=== PATIENT | male | born 1985 | race Two or more races ===

== ENCOUNTER → 2024-09-13 15:46 | Outpatient (BNVA) | payer OTHER, SELFPAY | PROVIDERS: Visit Provider Physician Assistant Surgical ==

== ENCOUNTER 2024-09-19 08:25 | Outpatient (AMB) | payer OTHER, SELFPAY ==
--- OUTSIDE RECORDS SUMMARY | 2024-09-19 08:30 | XMS_ITS | Clinical Summary ---
Author Organization [address] Address [address] [place] [address] Phone Care Team Providers Care Sander Machine Name Role Phone Julissa Hi MD Primary Care Prov ider Allergies No known active allergies Active Problems Problem Noted Date Diagnosed Date Unilateral undescended testicle 06/25/2023 Encounters Date Type Department Care Team Description 08/22/2024 Telephone Adult Medicine [address] [phone] Julissa Hi MD Referral (Dr Haile [facility] Weight Management ) 08/17/2024 Telephone Adult Medicine [address] [phone] Julissa Hi MD Referral 07/21/2024 8:00 AM EDT Office Visit Adult Medicine [address] [phone] Julissa Hi MD Adult general medical examination (Primary Dx); Snoring from Last 3 Months Immunizations Name Administration Dates Next Due Influenza Quadravalent, MDCK , 0.5ml, preservative free (Flucelvax) 6mo and older 06/25/2023 Moderna SARS-CoV-2 COVID-19, mRNA, LNP-S, preservative free 01/16/2021,12/18/2020 Tdap Tetanus diptheria acell ular pertussis (Boostrix; Adacel) 7yo and older 06/25/2020 Medical History Medical History Date Comments Vitiligo DX:Vitiligo Family History Medical History Relation Name Comments No Known Problems Brother No Known Problems Father No Known Problems Mother No Known Problems Sister Diabetes Neg Hx Other cancer Neg Hx Relation Name Status Comments Brother Father Mother Sister Social History Tobacco Use Types Packs/Day Years Used Date Smoking Tobacco: Never Smokeless Tobacco: Never Tobacco Cessation:Counseling Given: Not Answered Alcohol Use Standard Drinks/Week Comments Not Currently 0 (1 standard drink = 0.6 oz pur e alcohol) Housing Instability Answer Date Recorde d Are you worried that in the next 2 months you may not have stable housing? No 07/20/2024 Food Access & Nutrition Answer Date Rec orded Do you have access to a vari ety of food including fruits and vegetables? Yes 07/20/2024 Access to Healthcare Answer Date Record ed Within the last 3 months, ho w many times did you visit the emergency department for your medical care? 0 07/20/2024 Health Literacy Answer Date Recorded How often do you need to hav e someone help you when you read instructions, pamphlets, or other written material from your doctor or pharmacy? Sometimes 07/20/2024 Caregiver: How often do you need to have someone help you when you read instructions, pamphlets, or other written material from your doctor or pharmacy? Not on file 07/20/2024 Financial Risk Answer Date Recorded How hard is it for you to pa y for the very basics like food, housing, medical care, and air conditioning / heating? Not very hard 07/20/2024 Transportation Answer Date Recorded Has the lack of transportati on kept you from meetings, work, or from getting things needed for daily living? No Has the lack of transportati on kept you from medical appointments or from getting medications? No 07/20/2024 Social Isolation Answer Date Recorded How often do you feel lonely or isolated from th ose around you? Never 07/20/2024 Food Risk Answer Date Recorded Within the past 12 months we worried whether our food would run out before we got money to buy more. Never true 07/20/2024 Within the past 12 months th e food we bought just didn't last and we didn't have money to get more. Never true 07/20/2024 Dependent Care Answer Date Recorded Do you need help finding or paying for care for your loved ones. For example, early childhood assistant or elderly care for an older adult? No 07/20/2024 Education Answer Date Recorded Do you think completing more education or training, like finishing a GED, going to college, or learning a trade, would be helpful for you? Yes 07/20/2024 Employment and Income Answer Date Recor ded During the last four weeks, have you been actively looking for work? No 07/20/2024 Living Situation Answer Date Recorded What is your living situation? 0 07/20/2024 Sex and Gender Information Value Date Recorded Sex Assigned at Male 06/17/2024 3:56 PM EST Legal Sex Male 6:17 PM EST Gender Identity Male 06/17/2024 3:56 PM EST Sexual Orientation Not on file Obstetrics History Last Filed Vital Signs Vital Sign Reading Time Taken Comments Blood Pressure 127/78 07/21/2024 8:01 AM EDT Pulse 77 07/21/2024 8:01 AM EDT Temperature 36.4 ??C (97.6 ??F) 07/21/2024 8:01 AM ED T Respiratory Rate 18 07/21/2024 8:01 AM EDT Oxygen Saturation - - Inhaled Oxygen Concentration - - Weight 124 kg (273 lb 9.6 oz) 07/21/2024 8:01 AM EDT Height 188 cm (6' 2 ) 07/21/2024 8:01 AM EDT Body Mass Index 35.13 07/21/2024 8:01 AM EDT Plan of Treatment Upcoming Encounters Date Type Department Care Team (Late st Contact Info) Description 07/24/2025 7:30 AM EDT Office Visit Adult Medicine [address] [phone] Julissa Hi MD [address] [place] [id number] Health Maintenance Due Date Last Done Comments Hepatitis B Vaccines (1 of 3 - 19+ 3-dose series) 2005 HIV Screening 06/12/2023 Hepatitis C Screening 06/12/2023 Influenza Vaccine (Season Ended) 2025 06/25/2023 Depression Screening 07/20/2025 07/20/2024 Social Influencers of Health Screening 07/20/2025 07/20/2024 Cholesterol Screening (Lipid Panel) 07/26/2029 07/26/2024, 07/01/2023 DTaP,Tdap,and Td Vaccines (2 - Td or Tdap) 06/25/2030 06/25/2020 COVID-19 Vaccine Discontinued 01/16/2021, 12/18/2020 HIB Vaccines Aged Out No longer eligi ble based on patient's age to complete this topic HPV Vaccines Aged Out No longer eligi ble based on patient's age to complete this topic Hepatitis A Vaccines Aged Out No long er eligible based on patient's age to complete this topic IPV Vaccines Aged Out No longer eligi ble based on patient's age to complete this topic MMR Vaccines Aged Out No longer eligi ble based on patient's age to complete this topic Meningococcal ACWY Vaccine Aged Out N o longer eligible based on patient's age to complete this topic Meningococcal B Vaccine Aged Out No l onger eligible based on patient's age to complete this topic Pneumococcal Vaccine: Pediatrics (0 to 5 Years) and At-Risk Patients (6 to 64 Years) Aged Out No longer eligible based on patient's age to complete this topic RSV Immunization Patients Under 20 months Aged Out No longer eligible based on patient's age to complete this topic Varicella Vaccines Aged Out No longer eligible based on patient's age to complete this topic Procedures Procedure Name Priority Date/Time Associated Diagnosis Comments COMPREHENSIVE METABOLIC PANEL Routine 07/26/2024 8:22 AM EDT Adult general medical examination LIPID PANEL WITH REFLEX TO DIRECT LDL Routine 07/26/2024 8:22 AM EDT Adult general medical examination from Last 3 Months Results * (ABNORMAL) Lipid panel with reflex to direct LDL (07/26/2024 8:22 AM EDT) Cholesterol 164 0 - 200 mg/dL LAB CHEMISTRY METHOD 07/26/2024 11:13 AM EDT [facility] Triglycerides 130 0 - 150 mg/dL LAB CHEMISTRY METHOD 07/26/2024 11:13 AM EDT [facility] HDL 35(L) >=40 mg/dL LAB CHEMISTRY METHOD 07/26/2024 11:13 AM EDT [facility] LDL Calculated 103(H) 0 - 100 mg/dL LAB CHEMISTRY METHOD 07/26/2024 11:13 AM EDT [facility] VLDL Cholesterol Goran 26 mg/dL LAB CHEMISTRY METHOD 07/26/2024 11:13 AM T [facility] Non HDL Chol. (LDL+VLDL) 129 <145 mg/dL LAB CHEMISTRY METHOD 07/26/2024 11:13 AM T [facility] Chol/HDL Ratio 4.7(H) 0.0 - 4.4 LAB CHEMISTRY METHOD 07/26/2024 11:13 AM [facility] Blood Venous blood specimen / Unknown Venipuncture / Unknown 07/26/2024 8:22 AM EDT 07/26/2024 8:22 AM EDT us Julissa Hi MD LAB BLOOD ORDERABL ES Final Result [facility] [address] [place] [address], * Comprehensive metabolic panel (07/26/2024 8:22 AM EDT) Sodium 138 133 - 145 mmol/L LAB CHEMISTRY METHOD 07/26/2024 11:13 AM T [facility] Potassium 4.2 3.5 - 5.5 mmol/L LAB CHEMISTRY METHOD 07/26/2024 11:13 AM [facility] Chloride 106 96 - 110 mmol/L LAB CHEMISTRY METHOD 07/26/2024 11:13 AM [facility] CO2 29 21 - 32 mmol/L LAB CHEMISTRY METHOD 07/26/2024 11:13 AM T [facility] Anion Gap 3 3 - 11 LAB CHEMISTRY METHOD 07/26/2024 11:13 AM [facility] Glucose 96 70 - 100 mg/dL LAB CHEMISTRY METHOD 07/26/2024 11:13 AM [facility] BUN 14 5 - 25 mg/dL LAB CHEMISTRY METHOD 07/26/2024 11:13 AM [facility] Creatinine 1.22 0.70 - 1.30 mg/dL LAB CHEMISTRY METHOD 07/26/2024 11:13 AM [facility] eGFR 78 >=60 mL/min/1. 73m2 LAB CHEMISTRY METHOD 07/26/2024 11:13 AM [facility] Comment:Calculation based on the??Chronic Kidney Disease Epidemiology Collaboration (CKD-EPI) equation refit??without adjustment for race. BUN/Creatinine Ratio 11.5 LAB CHEMISTRY METHOD 07/26/2024 11:13 AM [facility] Calcium 9.4 8.5 - 10.5 mg/dL LAB CHEMISTRY METHOD 07/26/2024 11:13 AM [facility] AST (SGOT) 25 10 - 42 unit/L LAB CHEMISTRY METHOD 07/26/2024 11:13 AM [facility] ALT (SGPT) 47 10 - 60 unit/L LAB CHEMISTRY METHOD 07/26/2024 11:13 AM [facility] Alkaline Phosphatase 108 42 - 121 unit/L LAB CHEMISTRY METHOD 07/26/2024 11:13 AM [facility] Total Protein 7.3 6.0 - 8.0 g/dL LAB CHEMISTRY METHOD 07/26/2024 11:13 AM [facility] Albumin 3.9 3.2 - 5.0 g/dL LAB CHEMISTRY METHOD 07/26/2024 11:13 AM [facility] Total Bilirubin 0.8 0.0 - 1.4 mg/dL LAB CHEMISTRY METHOD 07/26/2024 11:13 AM EDT [facility] Blood Venous blood specimen / Unknown Venipuncture / Unknown 07/26/2024 8:22 AM EDT 07/26/2024 8:22 AM EDT us Julissa Hi MD LAB BLOOD ORDERABL ES Final Result [facility] [address] [place] [address], from Last 3 Months Insurance [facility] [employer] Care Teams Sander Machine Relationship Specialty Start Date End Date Julissa Hi MD [address] [place] [id number] PCP - General 02/10/23
--- NOTE | 2024-09-19 13:40 | MHC.OFFVISWM ---
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* Sharepoint Application Developer Required: Yes Sharepoint Application Developer Services: Sharepoint Application Developer Present Information Interpreted: clinical only Allergies No Known Allergies Allergy (Verified 09/19/24 13:42) Medication List - Last Reconciled 09/19/24 by Reed Méndez MD No Known Home Meds HPI HPI 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*: Details: Start time: 1.22pm, End time: 2.22pm ?I spent 55 minutes speaking with the patient on the phone plus an additional 5 minutes reviewing and updating records for a total of 60 minutes HPI Comments Details: Previous weight loss efforts: self diet and exercise Wakes up: 5.40am, Sleeps: 10pm Breakfast: occasionally Lunch: 1pm (salad, meat) Dinner: 7pm (fruits and juice) Snacks: snacking in between Exercise: has home Elliptical and treadmill Beverages: Coffee (1 cup/day with sugar), tea: none, soda: none, juice: 1 cup/day, ETOH: none PFSH Medical History (Updated 09/19/24 @ 14:06 by Reed Méndez MD) Anxiety Hyperlipidemia GERD (gastroesophageal reflux disease) BMI 36.0-36.9,adult Obesity Surgical History (Updated 09/13/24 @ 15:55 by Anabel Rivers CMA) No history of previous surgery Family History (Updated 09/14/24 @ 08:25 by Anabel Rivers CMA) Mother No problems noted. Father No problems noted. Social History (Updated 09/13/24 @ 15:55 by Anabel Rivers CMA) Alcohol intake: never Patient Tobacco Use Status: Never used Tobacco Telehealth Telehealth Telehealth Platform: Telephone Location of provider rendering services: practice address Location of patient: address on file Patient Identification confirmed using: Name, : Yes Telehealth method: voice only Patient verbally consented to treatment: Yes Patient verbally consented to billing insurance company: Yes Patient informed of any privacy concerns related to visit: Yes Minutes spent on Phone/Video with Pt.: 60 Assessment & Plan Assessment & Plan (1) Obesity: Code(s): E66.9 - Obesity, unspecified Category: Medical Qualifiers: Obesity type: due to excess calories Obesity classification: adult class 2 (BMI 35 - 39.9) Serious obesity comorbidity presence: without serious comorbidity Body mass index: BMI 36.0-36.9 Qualified Code(s): E66.812 - Obesity, class 2; E66.09 - Other obesity due to excess calories; Z68.36 - Body mass index [BMI] 36.0-36.9, adult Plan: 1.? Plan for lap sleeve gastrectomy. If diaphragmatic or ventral hernias are present at time of surgery, these will be repaired laparoscopically as well. I emphasized the importance of close follow-up, adherence to instructions and good communication. The surgery does not replace the need to change your lifestlyle which is the cause of the obesity problem. The surgery provides the motivation to try again to change your lifestyle, it reduces the appetite and make the transition to a better lifestyle easier and doubles the amount of weight you would lose compared to doing the lifestyle change without the surgery. You will need to be on a liquid diet with protein shakes for 2 weeks before surgery to maximize weight loss and boost your nutritional status to recover better from surgery and also for the first two weeks after surgery to let the stomach heal before we introduce other foods. After the first 2 weeks we will introduce protein bars and soft foods like scrambled eggs, cottage cheese and yogurt and after the 6th week will introduce meat, fish and cooked vegetables in small amounts. Over time you should be able to eat everything in small amounts. Side effects like nausea, vomiting, heartburn or abdominal pain are not common in the practice unless you are not following in the practice. This operation requires lifetime commitment to following in our practice and communication with me. You will much less weight and experience side effects if you don?t communicate or not following in the practice. Complications are rare and in our practice is about 1/10 of the national average. However, you can develop bleeding that may require transfusion (hasn?t happened for year in the practice), you may from complications (we did not have any deaths in the practice) and infections. Infections are usually a result of breakdown in communication or not understanding or following directions correctly. They are difficult to treat, they can happen during the first 6 weeks, they may require to be in the hospital for weeks or even months, not being able to eat by mouth and you may have drains and surgeries to try and correct the issue. Other risks and complications include possible conversion to an open procedure, leaks, small bowel obstruction, blood clots, cardiac, or pulmonary complications, as oil heaterman complications such as ulcers, insufficient weight loss and vitamin deficiencies. 2.? Nutritional counseling. Start with one premade Premier protein (buy at [employer]) shake (mix 4oz of Premier mixed with 4oz low fat unsweetened almond milk each) at 7am-9am, 1 protein bar (Fit Crunch protein bars, buy at [employer]) at 10am-12pm, another premade Premier protein shake (mix 4oz of Premier mixed with 4oz low fat unsweetened almond milk each) at 1pm-3pm, another [employer] Crunch protein bar at 4pm-6pm and dinner at 7pm (10 forks of protein and 10 forks of salad/vegetables). If hungry, you can have another HALF protein bar at 9pm-10pm. So you do 2 protein shakes, 2 to 2.5 protein bars and one meal per day. Meal to include lean meat (beef, fish, pork, turkey, chicken), or uruguayan yogurt, or egg whites, or beans with a salad with olive oil and fruits (berries, pears, apples, kiwi). Avoid salt, breads, potatoes, rice, pasta, desserts. 3. Each shake would be drunk slowly, like coffee in a period of 2 hours. 4. Cut each bar in 4 pieces and eat each piece in 30min ?to make each bar last 2 hours. 5. I emphasized the importance of measuring accurately the food portion and measure it when serving the food in plate 6. The meal portions include 10 full-size forks of meat and 10 full-size forks of salad. You always eat the meat portion but you can replace up to 5 forks for salad/vegetables with rice, potatoes or pasta, or a fruit ?if you like. The less you do it the better weight loss will be. 7. One full-size fork is what it can be scooped on the fork without falling aside and not what can be bit with the fork. Use regular forks like those you find in a typical restaurant. 8.? Please buy the body composition scale we discussed and send me weight measurements as soon as possible and then once a week. Always include your diet and exercise plan. 9. Start treadmill with an incline of 2.0 and speed of 3.0. Increase incline by 1 every 3 min to a max incline of 8.0, stay 3min at 8.0 and then return to 2.0 and repeat same steps until calorie goal is met. Goal is to burn 2000 calories per week on exercise, which means either 300 calories daily, or 400 calories 5 days per week, or 500 calories 4 days per week. 10. Goal is to lose at least 1.5-2lbs per week 11. Goal to lose 10% of your weight before surgery, which is about 27lbs. Ultimate weight goal: 260lbs before surgery 12. Please follow the diet plan exactly without any change. If you don't like something about the plan or you feel hungry you need to communicate with me so I can help you revise the plan. You should not change the plan yourself 13. To be scheduled for EGD to assess the stomach's anatomy. The possibility of biopsies was discussed. Patient needs to avoid use of NSAIDs and aspirin for 1 week prior to EGD. You must be on liquids only the day before your endoscopy. Risks of perforation and bleeding was discussed with the patient. This will be an outpatient procedure with IV sedation. Orders: Orders Hemoglobin A1c Today E66.9 - Obesity, unspecified, E78.5 - Hyperlipidemia, unspecified, K21.9 - Gastro-esophageal reflux disease without esophagitis, Z68.36 - Body mass index [BMI] 36.0-36.9, adult H Pylori Breath Test Today E66.9 - Obesity, unspecified, E78.5 - Hyperlipidemia, unspecified, K21.9 - Gastro-esophageal reflux disease without esophagitis, Z68.36 - Body mass index [BMI] 36.0-36.9, adult Complete Blood Count Auto Diff Today E66.9 - Obesity, unspecified, E78.5 - Hyperlipidemia, unspecified, K21.9 - Gastro-esophageal reflux disease without esophagitis, Z68.36 - Body mass index [BMI] 36.0-36.9, adult Lipid Panel Today E66.9 - Obesity, unspecified, E78.5 - Hyperlipidemia, unspecified, K21.9 - Gastro-esophageal reflux disease without esophagitis, Z68.36 - Body mass index [BMI] 36.0-36.9, adult IRON PROFILE Today E66.9 - Obesity, unspecified, E78.5 - Hyperlipidemia, unspecified, K21.9 - Gastro-esophageal reflux disease without esophagitis, Z68.36 - Body mass index [BMI] 36.0-36.9, adult Comprehensive Met. Panel Today E66.9 - Obesity, unspecified, E78.5 - Hyperlipidemia, unspecified, K21.9 - Gastro-esophageal reflux disease without esophagitis, Z68.36 - Body mass index [BMI] 36.0-36.9, adult Vitamin B12 and Folate Today E66.9 - Obesity, unspecified, E78.5 - Hyperlipidemia, unspecified, K21.9 - Gastro-esophageal reflux disease without esophagitis, Z68.36 - Body mass index [BMI] 36.0-36.9, adult Vitamin A Today E66.9 - Obesity, unspecified, E78.5 - Hyperlipidemia, unspecified, K21.9 - Gastro-esophageal reflux disease without esophagitis, Z68.36 - Body mass index [BMI] 36.0-36.9, adult Vitamin D 25-OH Total Today E66.9 - Obesity, unspecified, E78.5 - Hyperlipidemia, unspecified, K21.9 - Gastro-esophageal reflux disease without esophagitis, Z68.36 - Body mass index [BMI] 36.0-36.9, adult Insulin Today E66.9 - Obesity, unspecified, E78.5 - Hyperlipidemia, unspecified, K21.9 - Gastro-esophageal reflux disease without esophagitis, Z68.36 - Body mass index [BMI] 36.0-36.9, adult Zinc Today E66.9 - Obesity, unspecified, E78.5 - Hyperlipidemia, unspecified, K21.9 - Gastro-esophageal reflux disease without esophagitis, Z68.36 - Body mass index [BMI] 36.0-36.9, adult C Reactive Protein Today E66.9 - Obesity, unspecified, E78.5 - Hyperlipidemia, unspecified, K21.9 - Gastro-esophageal reflux disease without esophagitis, Z68.36 - Body mass index [BMI] 36.0-36.9, adult Vitamin B1 Today E66.9 - Obesity, unspecified, E78.5 - Hyperlipidemia, unspecified, K21.9 - Gastro-esophageal reflux disease without esophagitis, Z68.36 - Body mass index [BMI] 36.0-36.9, adult TSH reflex Free T4 Today E66.9 - Obesity, unspecified, E78.5 - Hyperlipidemia, unspecified, K21.9 - Gastro-esophageal reflux disease without esophagitis, Z68.36 - Body mass index [BMI] 36.0-36.9, adult Ferritin Today E66.9 - Obesity, unspecified, E78.5 - Hyperlipidemia, unspecified, K21.9 - Gastro-esophageal reflux disease without esophagitis, Z68.36 - Body mass index [BMI] 36.0-36.9, adult US abdomen comp w elastography Today E66.9 - Obesity, unspecified, E78.5 - Hyperlipidemia, unspecified, K21.9 - Gastro-esophageal reflux disease without esophagitis, Z68.36 - Body mass index [BMI] 36.0-36.9, adult XR chest 2V Today E66.9 - Obesity, unspecified, E78.5 - Hyperlipidemia, unspecified, K21.9 - Gastro-esophageal reflux disease without esophagitis, Z68.36 - Body mass index [BMI] 36.0-36.9, adult ECG 12 lead EKG Today E66.9 - Obesity, unspecified, E78.5 - Hyperlipidemia, unspecified, K21.9 - Gastro-esophageal reflux disease without esophagitis, Z68.36 - Body mass index [BMI] 36.0-36.9, adult FL upper GI w air Today E66.9 - Obesity, unspecified, E78.5 - Hyperlipidemia, unspecified, K21.9 - Gastro-esophageal reflux disease without esophagitis, Z68.36 - Body mass index [BMI] 36.0-36.9, adult Referrals Behavioral Health Referral E66.9 - Obesity, unspecified, E78.5 - Hyperlipidemia, unspecified, K21.9 - Gastro-esophageal reflux disease without esophagitis, Z68.36 - Body mass index [BMI] 36.0-36.9, adult Nutrition/Dietitian Referral E66.9 - Obesity, unspecified, E78.5 - Hyperlipidemia, unspecified, K21.9 - Gastro-esophageal reflux disease without esophagitis, Z68.36 - Body mass index [BMI] 36.0-36.9, adult
[2024-09-19 13:54] VITALS: BMI 36.9
== END 2024-09-19 14:23 | disposition home or self-care (01) ==
LOC: HO.HBS 08:25
PROVIDERS: PCP Internal Medicine; Visit Provider Surgery
DX: E66.812 Obesity, class 2 (principal); E66.09 Other obesity due to excess calories; Z68.36 Body mass index [BMI] 36.0-36.9, adult
CPT/HCPCS: 98015

== ENCOUNTER 2024-10-05 11:23 | Day surgery (SDC) | payer OTHER, SELFPAY ==
--- OUTSIDE RECORDS SUMMARY | 2024-09-28 14:36 | XMS_ITS | Clinical Summary ---
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] care for your loved ones. For example, childcare director or elderly care for an older adult? [...] 7:30 AM EDT Office Visit Adult Medicine [address] [phone] Julissa Hi MD [address] [place] [phone] Health Maintenance Due Date Last Done Comments [...] LAB CHEMISTRY METHOD 07/26/2024 11:13 AM EDT [facility] Triglycerides 130 0 - 150 mg/dL LAB CHEMISTRY METHOD 07/26/2024 11:13 AM EDT [facility] HDL 35(L) >=40 mg/dL LAB CHEMISTRY METHOD 07/26/2024 11:13 AM EDT [facility] LDL Calculated 103(H) 0 - 100 mg/dL LAB CHEMISTRY METHOD 07/26/2024 11:13 AM EDT [facility] VLDL Cholesterol Goran 26 mg/dL LAB CHEMISTRY METHOD 07/26/2024 11:13 AM T [facility] Non HDL Chol. (LDL+VLDL) 129 <145 mg/dL LAB CHEMISTRY METHOD 07/26/2024 11:13 AM T [facility] Chol/HDL Ratio 4.7(H) 0.0 - 4.4 LAB CHEMISTRY METHOD 07/26/2024 11:13 AM [facility] Blood Venous blood specimen / Unknown Venipuncture / Unknown 07/26/2024 8:22 AM EDT 07/26/2024 8:22 AM EDT us Julissa Hi MD LAB BLOOD ORDERABL ES Final Result [facility] [address] [place] [address], * Comprehensive metabolic panel (07/26/2024 8:22 AM EDT) Sodium 138 133 - 145 mmol/L LAB CHEMISTRY METHOD 07/26/2024 11:13 AM T [facility] Potassium 4.2 3.5 - 5.5 mmol/L LAB CHEMISTRY METHOD 07/26/2024 11:13 AM [facility] Chloride 106 96 - 110 mmol/L LAB CHEMISTRY METHOD 07/26/2024 11:13 AM [facility] CO2 29 21 - 32 mmol/L LAB CHEMISTRY METHOD 07/26/2024 11:13 AM T [facility] Anion Gap 3 3 - 11 LAB CHEMISTRY METHOD 07/26/2024 11:13 AM [facility] Glucose 96 70 - 100 mg/dL LAB CHEMISTRY METHOD 07/26/2024 11:13 AM [facility] BUN 14 5 - 25 mg/dL LAB CHEMISTRY METHOD 07/26/2024 11:13 AM [facility] Creatinine 1.22 0.70 - 1.30 mg/dL LAB CHEMISTRY METHOD 07/26/2024 11:13 AM [facility] eGFR 78 >=60 mL/min/1. 73m2 LAB CHEMISTRY METHOD 07/26/2024 11:13 AM [facility] Comment:Calculation based on the??Chronic Kidney Disease Epidemiology Collaboration (CKD-EPI) equation refit??without adjustment for race. BUN/Creatinine Ratio 11.5 LAB CHEMISTRY METHOD 07/26/2024 11:13 AM [facility] Calcium 9.4 8.5 - 10.5 mg/dL LAB CHEMISTRY METHOD 07/26/2024 11:13 AM [facility] AST (SGOT) 25 10 - 42 unit/L LAB CHEMISTRY METHOD 07/26/2024 11:13 AM [facility] ALT (SGPT) 47 10 - 60 unit/L LAB CHEMISTRY METHOD 07/26/2024 11:13 AM [facility] Alkaline Phosphatase 108 42 - 121 unit/L LAB CHEMISTRY METHOD 07/26/2024 11:13 AM [facility] Total Protein 7.3 6.0 - 8.0 g/dL LAB CHEMISTRY METHOD 07/26/2024 11:13 AM [facility] Albumin 3.9 3.2 - 5.0 g/dL LAB CHEMISTRY METHOD 07/26/2024 11:13 AM [facility] Total Bilirubin 0.8 0.0 - 1.4 mg/dL LAB CHEMISTRY METHOD 07/26/2024 11:13 AM EDT [facility] Blood Venous blood specimen / Unknown Venipuncture / Unknown 07/26/2024 8:22 AM EDT 07/26/2024 8:22 AM EDT us Julissa Hi MD LAB BLOOD ORDERABL ES Final Result [facility] [address] [place] [address], from Last 3 Months Insurance [facility] [employer] Care Teams 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
--- NOTE | 2024-10-04 08:26 | HO.ANESPROP2 ---
Documented by User: Chuyita Minor NP 10/04/24 08:26 HPI - Anesthesia Eval Consult details Narrative: 39yo M for Upper Endoscopy [facility] Active Problems Active Problems: All Active Problems Anxiety (Acute) Hyperlipidemia (Acute) GERD (gastroesophageal reflux disease) (Acute) BMI 36.0-36.9,adult (Acute) Obesity (Acute) Past Medical History Medical History Anxiety Hyperlipidemia GERD (gastroesophageal reflux disease) BMI 36.0-36.9,adult Obesity Family History Family History Mother No problems noted. Father No problems noted. Surgical History Surgical History No history of previous surgery Social History Social History Alcohol intake: never Patient Tobacco Use Status: Never used Tobacco Use of substances other than those prescribed or required for medical reasons: No Have you been hit, kicked, punched, or otherwise hurt by someone within the past year? If so, by whom?: No Are you DNR?: No Advance Directives: No Advance Directives Information Provided: Yes Poor oral hygiene: No Meds Allergies Allergy/AdvReac Type Severity Reaction Status Date / Time No Known Allergies Allergy Verified 10/05/24 11:54 Home Medications ?Medication ?Instructions ?Recorded ?Confirmed ?Last Taken ?Type No Known Home Meds 09/13/24 09/19/24 Unknown History Assessment and Plan Assessment Anesthesia Assessment: Chart Reviewed Documented by User: Elizabeth Garcia MD 10/05/24 12:19 [facility] Past Medical History Medical History Anxiety Hyperlipidemia GERD (gastroesophageal reflux disease) BMI 36.0-36.9,adult Obesity Family History Family History Mother No problems noted. Father No problems noted. Surgical History Surgical History No history of previous surgery History of Problems with Anesthesia: No Social History Social History Alcohol intake: never Patient Tobacco Use Status: Never used Tobacco Use of substances other than those prescribed or required for medical reasons: No Have you been hit, kicked, punched, or otherwise hurt by someone within the past year? If so, by whom?: No Are you DNR?: No Advance Directives: No Advance Directives Information Provided: Yes Poor oral hygiene: No Meds Allergies Allergy/AdvReac Type Severity Reaction Status Date / Time No Known Allergies Allergy Verified 10/05/24 11:54 Home Medications ?Medication ?Instructions ?Recorded ?Confirmed ?Last Taken ?Type No Known Home Meds 09/13/24 09/19/24 Unknown History Exam Airway Mallampati Class: III TM Dist: >3cm Neck ROM: Full Loose/Missing/Broken Teeth: No Heart: RRR Lungs: CTA Assessment and Plan Assessment Anesthesia Assessment: Anesthesia Plan Discussed Final Anesthetic Review History of Problems with Anesthesia: No NPO: Yes ASA Class: II Final Preanesthetic Review: Meds/Allgs Chart Reviewed, Consent Obtained/Reviewed and Anes Risks/Benef Reviewed Patient Risk: Low Procedure Risk: Intermediate Anesthetic Plan Anesthetic Plan: MAC: Disposition: Standard PACU
[2024-10-04 12:54] VITALS: BMI 36.9
--- NOTE | 2024-10-05 11:58 | MHC.SHP ---
Pre-Procedural Eval Section A - 24 Hr Update-Section A only Date of Service: 10/05/24 The patient is an INPATIENT: No The patient has been examined within 24 hours of the surgical procedure. The History & Physical has been completed within 30 days and I have reviewed it.: Yes Section B - Complete if H&P > 30 days Chief Complaint: Morbid (severe) obesity due to excess calories Details of Present Illness: GERD Relevant Family History (Specify if Yes): No Relevant Social History: None Present Medications: None Medical History: No relevant PMH History of Previous Operations: No relevant previous surgery Allergies: Allergies Allergy/AdvReac Type Severity Reaction Status Date / Time No Known Allergies Allergy Verified 10/05/24 11:54 Review of Systems Sugical H&P ROS: Negative: Constitution, Cardiovascular, Respiratory, Neurological, Psychiatric, Hem-Onc, Allergic/Immunologic, Gastrointestinal, Genitourinary, Musculoskeletal, Integumentary, Endocrine and Eyes/Ears/Nose/Throat Exam Surgical H&P Exam: Normal: HEENT, Normal: Heart, Normal: Lungs, Normal: Extremities, Normal: Abdomen, Normal: Skin and Normal: Neurological Plan Diagnosis/Plan: Unchanged (EGD to assess etiology of GERD. Risks of bleeding and perforation were discussed with the patient and he is in agreement with the plan.) I have reviewed the history and physical and performed a pertinent physical examination on my patient. No changes have occurred unless specified. Time Spent With Patient Time: Total time managing care of this patient today ____ minutes.
[2024-10-05 12:02] VITALS: BP 145/84; PULSE 75; RESP 14; TEMP 36.4; O2SAT 99; BMI 34.2
--- NOTE | 2024-10-05 12:02 | PM.OP ---
Brief Operative Note Date of Service: 10/05/24 Pre-op diagnosis: GERD Post-op diagnosis: same Procedure: PROCEDURE DATE: 10/05/24 PREOPERATIVE DIAGNOSIS: GERD POSTOPERATIVE DIAGNOSIS: ?Same as above. PROCEDURE: [id number] with biopsies Surgeon: Marian Méndez M.D.. Ph.D. Infrastructure Software Engineer: None ? Anesthesia: IV sedation Estimated blood loss: ?Minimal FINDINGS AND PROCEDURE: ? OPERATIVE INDICATIONS: ?The patient is a 39 year old male known to me who is interested in bariatric surgery. The patient has GERD. Based on this information I recommended an upper endoscopy to evaluate the patient's symptoms. Risks and complications of the surgery were discussed with the patient in advance particularly the possibility of perforation or bleeding that may require surgical intervention. The patient understood the risks and was in agreement with the plan. ? PROCEDURE: After informed consent was obtained by the patient, the patient was ?transferred to the Operating Room and was placed in the supine position.? After successful induction of IV sedation, a mouth block was inserted and the patient was placed in the left lateral decubitus position. An upper endoscopy was performed next, the oropharynx and esophagus appeared within the normal limits. There was no hiatal hernia. The z-line was smooth. Two biopsies were obtained from the distal esophagus 2-3 cm proximal to the GE junction and two additional biopsies from the GE junction. The stomach was entered and it appeared to be of normal size. There was no gastritis. There was no stricture or ulcer. A biopsy was obtained from the gastric fundus and the antrum. No significant bleeding was noted from any of the biopsy sites. Retroflexion of the scope confirmed a normal GE junction. The scope was then advanced into the duodenum which appeared to be normal as well. At that point the duodenum ?and the stomach were decompressed and the scope was withdrawn from the patient's mouth. The patient extubated and was transferred in stable condition to the Recovery Room for further care. I was present and performed all steps of the procedure. There were no residents to assist with this case. Zev Méndez M.D., Ph.D. Surgeon: Reed Méndez MD Anesthesia: MAC Was an Infrastructure Software Engineer used for this Procedure?: No Estimated blood loss (mL): 0 IV fluids (mL): 400 Urine output (mL): 0 (No Ball to record output) Pathology: other (1) antrum x1, 2) fundus x1, 3) GE junction x2, 4) distal esophagus x2) Condition: stable Disposition: PACU
[2024-10-05] MEDS: Lactated Ringers 1,000 ML 80 ML IVCONT (12:06)
[2024-10-05 12:31] VITALS: BP 110/56; PULSE 88; RESP 20; TEMP 36.1; O2SAT 96
[2024-10-05 12:46] VITALS: BP 121/76; PULSE 76; RESP 20; TEMP 36.1; O2SAT 97
== END 2024-10-05 13:13 | disposition home or self-care (01) ==
PROVIDERS: PCP Internal Medicine; Visit Provider Surgery
PROC: 0DJ08ZZ Inspection of Upper Intestinal Tract, Via Natural or Artificial Opening Endoscopic (ICD-10-PCS; CPT 43235; principal; 2024-10-05 13:10)
DX: K21.9 Gastro-esophageal reflux disease without esophagitis (principal); E66.09 Other obesity due to excess calories; Z68.36 Body mass index [BMI] 36.0-36.9, adult; K29.50 Unspecified chronic gastritis without bleeding; B96.81 Helicobacter pylori [H. pylori] as the cause of diseases classified elsewhere; E78.5 Hyperlipidemia, unspecified; F41.9 Anxiety disorder, unspecified
CPT/HCPCS: 43239; 88305; 88313; 88342; J2003; J2704; J3010

== ENCOUNTER → 2024-10-05 11:23 | Outpatient (BNV) | payer OTHER, SELFPAY | PROVIDERS: PCP Internal Medicine; Visit Provider Surgery | DX: K21.9 Gastro-esophageal reflux disease without esophagitis (principal) | CPT/HCPCS: 43239 ==

== ENCOUNTER 2024-10-06 08:00 | Outpatient (REF) | payer OTHER, SELFPAY ==
--- NOTE | ~2024-10-06 | XR_ITS ---
EXAMINATION: XR CHEST 2 VIEWS HISTORY: E66.9 - Obesity, unspecified COMPARISON: There are no prior studies for comparison. FINDINGS: PA and lateral views of the chest are submitted. The lungs are expanded and clear. There is no pleural effusion, pneumothorax, or pulmonary vascular congestion. The heart is normal in size. The bones are intact. XR/XR chest 2V IMPRESSION: Normal examination of the chest. Electronically signed by: Mc Michaels MD 10/06/2024 09:07 AM EDT
--- OUTSIDE RECORDS SUMMARY | 2024-10-06 08:04 | XMS_ITS | Clinical Summary ---
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 Name Role Phone Julissa Hi MD Primary Care Prov ider Allergies No known active allergies Active Problems Problem Noted Date Diagnosed Date Unilateral undescended testicle 06/25/2023 Encounters Date Type Department Care Team Description 08/22/2024 Telephone Adult Medicine [address] [phone] Julissa Hi MD Referral (Dr [facility] Weight Management ) 08/17/2024 Telephone Adult Medicine [address] [phone] Julissa Hi MD Referral 07/21/2024 8:00 AM EDT Office Visit Adult Medicine [address] [phone] Julissa Hi MD Adult general medical examination [...] care for your loved ones. For example, child nutrition director or elderly care for an older [...] 7:30 AM EDT Office Visit Adult Medicine [address] [phone] Julissa Hi MD [address] [place] [phone] Health Maintenance Due Date Last Done Comments [...] LAB CHEMISTRY METHOD 07/26/2024 11:13 AM EDT [facility] Triglycerides 130 0 - 150 mg/dL LAB CHEMISTRY METHOD 07/26/2024 11:13 AM EDT [facility] HDL 35(L) >=40 mg/dL LAB CHEMISTRY METHOD 07/26/2024 11:13 AM EDT [facility] LDL Calculated 103(H) 0 - 100 mg/dL LAB CHEMISTRY METHOD 07/26/2024 11:13 AM EDT [facility] VLDL Cholesterol Goran 26 mg/dL LAB CHEMISTRY METHOD 07/26/2024 11:13 AM T [facility] Non HDL Chol. (LDL+VLDL) 129 <145 mg/dL LAB CHEMISTRY METHOD 07/26/2024 11:13 AM T [facility] Chol/HDL Ratio 4.7(H) 0.0 - 4.4 LAB CHEMISTRY METHOD 07/26/2024 11:13 AM [facility] Blood Venous blood specimen / Unknown Venipuncture / Unknown 07/26/2024 8:22 AM EDT 07/26/2024 8:22 AM EDT us Julissa Hi MD LAB BLOOD ORDERABL ES Final Result [facility] [address] [place] [address], * Comprehensive metabolic panel (07/26/2024 8:22 AM EDT) Sodium 138 133 - 145 mmol/L LAB CHEMISTRY METHOD 07/26/2024 11:13 AM T [facility] Potassium 4.2 3.5 - 5.5 mmol/L LAB CHEMISTRY METHOD 07/26/2024 11:13 AM [facility] Chloride 106 96 - 110 mmol/L LAB CHEMISTRY METHOD 07/26/2024 11:13 AM [facility] CO2 29 21 - 32 mmol/L LAB CHEMISTRY METHOD 07/26/2024 11:13 AM T [facility] Anion Gap 3 3 - 11 LAB CHEMISTRY METHOD 07/26/2024 11:13 AM [facility] Glucose 96 70 - 100 mg/dL LAB CHEMISTRY METHOD 07/26/2024 11:13 AM [facility] BUN 14 5 - 25 mg/dL LAB CHEMISTRY METHOD 07/26/2024 11:13 AM [facility] Creatinine 1.22 0.70 - 1.30 mg/dL LAB CHEMISTRY METHOD 07/26/2024 11:13 AM [facility] eGFR 78 >=60 mL/min/1. 73m2 LAB CHEMISTRY METHOD 07/26/2024 11:13 AM [facility] Comment:Calculation based on the??Chronic Kidney Disease Epidemiology Collaboration (CKD-EPI) equation refit??without adjustment for race. BUN/Creatinine Ratio 11.5 LAB CHEMISTRY METHOD 07/26/2024 11:13 AM [facility] Calcium 9.4 8.5 - 10.5 mg/dL LAB CHEMISTRY METHOD 07/26/2024 11:13 AM [facility] AST (SGOT) 25 10 - 42 unit/L LAB CHEMISTRY METHOD 07/26/2024 11:13 AM [facility] ALT (SGPT) 47 10 - 60 unit/L LAB CHEMISTRY METHOD 07/26/2024 11:13 AM [facility] Alkaline Phosphatase 108 42 - 121 unit/L LAB CHEMISTRY METHOD 07/26/2024 11:13 AM [facility] Total Protein 7.3 6.0 - 8.0 g/dL LAB CHEMISTRY METHOD 07/26/2024 11:13 AM [facility] Albumin 3.9 3.2 - 5.0 g/dL LAB CHEMISTRY METHOD 07/26/2024 11:13 AM [facility] Total Bilirubin 0.8 0.0 - 1.4 mg/dL LAB CHEMISTRY METHOD 07/26/2024 11:13 AM EDT [facility] Blood Venous blood specimen / Unknown Venipuncture / Unknown 07/26/2024 8:22 AM EDT 07/26/2024 8:22 AM EDT us Julissa Hi MD LAB BLOOD ORDERABL ES Final Result [facility] [address] [place] [address], from Last 3 Months Insurance [facility] [employer] Care Teams Lever Operator Relationship Specialty Start Date End Date Julissa Hi MD [address] [place] [phone] PCP - General 02/10/23
[2024-10-06 08:19] LABS: MANUAL DIFF FLAG NO
--- NOTE | 2024-10-06 08:23 | ECG_ITS ---
Test Reason : E66.01 Blood Pressure : */* mmHG Vent. Rate : 61 BPM Atrial Rate : 61 BPM P-R Int : 194 ms QRS Dur : 92 ms QT Int : 418 ms P-R-T Axes : 47 14 25 degrees QTcB Int : 420 ms Normal sinus rhythm Normal ECG No previous ECGs available Referred By: Reed Méndez Electronically Signed By: LUMA THACKER MD
[2024-10-06 08:36] LABS: Basophils Percent Auto 0.3 % (0-2); Eosinophils Percent Auto 0.3 % (0-4); Hematocrit 45.2 % (42.0-52.0); Hemoglobin 15.6 g/dl (14.0-18.0); Imm Gran Abs Auto 0.02 X10*3/uL (0.00-0.03); Imm Gran Pct Auto 0.3 % (0.0-0.4); Lymphocytes Percent Auto 31.8 % (20-40); Mean Corpuscular HGB Conc 34.5 g/dl (31.0-36.0); Mean Corpuscular Hemoglobin 31.7 pg (27.0-33.0); Mean Corpuscular Volume 91.9 fL (80.0-98.0); Mean Platelet Volume 10.5 fL (9.4-12.4); Monocytes Absolute Auto 0.6 X10*3/uL (0.1-1.2); Neutrophils Absolute Auto 3.5 x10*3/uL (2.0-8.3); Neutrophils Percent Auto 57.3 % (45-73); Platelet Count 200 X10*3/uL (160-400); Red Blood Count 4.92 X10*6/uL (4.60-5.80); Red Cell Distribution Width 12.6 % (11.0-16.0); White Blood Count 6.2 X10*3/uL (4.8-10.8)
[2024-10-06 08:55] LABS: Estimated Average Glucose 103 mg/dL; Hemoglobin A1c % 5.2 % (<6.0); Total Hemoglobin (HGBA1C) 3900.2728 umol/L
[2024-10-06 09:07] LABS: Alanine Aminotransferase 44 U/L (0-40); Albumin Level 4.5 g/dL (3.5-5.0); Alkaline Phosphatase 84 U/L (39-117); Anion Gap 12 (12-20); Aspartate Amino Transferase 27 U/L (5-37); Bilirubin Total 1.1 mg/dL (0.0-1.0); Blood Urea Nitrogen 16 mg/dL (9-16); Calcium 9.6 mg/dL (8.4-10.2); Carbon Dioxide 26 mmol/L (22-29); Chloride 110 mmol/L (96-108); Cholesterol 158 mg/dL (<200); Estimated Glomerular Filt Rate > 60; Glucose Random 98 mg/dL (60-115); HDL Cholesterol 30 mg/dL (>40); Iron 94 mcg/dL (45-160); LDL Cholesterol Calculated 106 mg/dL (<100); Percent Iron Saturation 30 % (15-50); Potassium 4.3 mmol/L (3.3-5.1); Sodium 144 mmol/L (135-145); Total Iron Binding Capacity 313 mcg/dL (228-428); Total Protein 7.5 g/dL (6.5-8.0); Triglycerides 114 mg/dL (<150); Unsaturated Iron Binding 219 ug/dL
[2024-10-06 09:29] LABS: Ferritin 229 ng/mL (20-250); TSH reflex Free T4 0.93 uIU/mL (0.32-4.0); Vitamin D 25-OH Total 13.9 ng/mL (>30)
[2024-10-06 09:35] LABS: Folate 7.2 ng/mL (> or = 4.0); Vitamin B12 273 pg/mL (200-900)
[2024-10-06 10:27] LABS: Insulin 15 uU/mL (2-29)
[2024-10-09 19:13] LABS: Zinc 88 mcg/dL (60-130)
[2024-10-11 02:29] LABS: Vitamin A 48 mcg/dL (38-98)
[2024-10-11 15:09] LABS: Vitamin B1 7 nmol/L (8-30)
== END 2024-10-06 08:01 | disposition home or self-care (01) ==
LOC: HO.XRAY 08:00
PROVIDERS: PCP Internal Medicine; Visit Provider Surgery
DX: K21.9 Gastro-esophageal reflux disease without esophagitis (principal); Z68.36 Body mass index [BMI] 36.0-36.9, adult; E78.5 Hyperlipidemia, unspecified; E66.9 Obesity, unspecified
CPT/HCPCS: 36415; 71046; 80053; 80061; 82306; 82607; 82728; 82746; 83036; 83525; 83540; 84425; 84443; 84590; 84630; 85025; 86140; 93005

== ENCOUNTER → 2024-10-06 08:23 | Outpatient (BNV) | payer OTHER, SELFPAY | PROVIDERS: PCP Internal Medicine; Visit Provider Internal Medicine Cardiovascular Disease | DX: E66.01 Morbid (severe) obesity due to excess calories (principal) | CPT/HCPCS: 93010 ==

== ENCOUNTER → 2024-10-06 08:28 | Outpatient (BNV) | payer OTHER, SELFPAY | PROVIDERS: PCP Internal Medicine; Visit Provider Radiology Diagnostic Radiology | DX: E66.9 Obesity, unspecified (principal) | CPT/HCPCS: 71046 ==

== ENCOUNTER 2024-10-18 10:13 | Outpatient (AMB) | payer OTHER, SELFPAY ==
--- NOTE | 2024-10-18 10:10 | MHC.WMTHER ---
Intake Intake Visit Reasons: TV BH Intake Allergies No Known Allergies Allergy (Verified 10/05/24 11:54) PFSH Medical History Anxiety Hyperlipidemia GERD (gastroesophageal reflux disease) BMI 36.0-36.9,adult Obesity Surgical History No history of previous surgery Family History Mother No problems noted. Father No problems noted. Social History Alcohol intake: never Patient Tobacco Use Status: Never used Tobacco Behavioral Health Assessment Weight Management Therapy Therapy Notes Details The patient is a 39-year-old male presenting for an initial visit to begin a behavioral health assessment as part of a surgical weight loss program. He reported that his primary care physician initially referred him for weight loss due to sleep apnea and obesity. The patient has not yet been cleared, as the assessment was not completed today. He will return next week to continue the evaluation. Presenting Concerns Referral Source WMP-Provider. Reason for referral Completion of behavioral health assessment as part of process for weight-loss surgery. Precipitating Event Obesity. Living Situation Current Living Situation Own At risk of losing current housing? No Satisfied with current living situation? Yes Comments PT lives with his and 2 stepchildren. Food/Weight/Diet Expectations of change PT started the program at 287Lbs and his goal is to be at least 200Lbs post-op. The initial goal to lose 10% of his weight before surgery, which is about 27lbs. Ultimate weight goal: 260lbs before surgery. Patient wants to be at least at 200Lbs. PT is implementing the following: Current meal plan: Exercise plan: History/Relationship with food Example of meals before starting the program: Breakfast: Lunch: Dinner: Snacks: Drinks/Liquids: History/Relationship with weight Pt reports he was a healthy weight in childhood, as a kid and teen he was very active and played baseball, then once became an adult and stop playing sports he started gaining weight. In the last 10 years, the patient's Lowest weight was and highest Social History Family history and relationship PT is 5 years ago. Currently lives with his and her 2 children (They are 21 and 18) He has a 14 year old son who lives with his mother. Parents alive, they live in . He has 9 siblings, 1 from mom and dad and the others are from her father's side. 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 His mother has full custody now, but he has him multiple times at year. Developmental history and status None reported. Currently WNL. Social support . Community support None Mormon/Spirituality Yarsanism. Cultural/Ethnic information PT has been in 6 years ago. He was born and raised in [place]. Legal Involvement and History Current or historical involvement with the legal system? None. Education Highest grade completed HS. Preferred learning style Learn by doing and Visual Currently enrolled in educational program? No Interested in further educational program? 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 Employment Employment Status Other ([employer] Wants help to find employment? No Meaningful activities Video games, movies, Financial Situation Describe current financial situation Comfortable Financial assistance? None Service Service? No Mental Health and Addiction Treatment Current/Past substance abuse? No Comments Alcohol: Socially, 1-2 times at month 1 glass of wine. Cigarettes/Tobacco: none. Vaping: None Cannabis/Edibles: None. Current/Past addictive behavior concerns? No Psychiatric history PT reports he has never attended counseling, or even been in crisis or inpatient for mental health. There is no history and/or current concern about SI/SA and self-harm or other harm. Medical and Physical Health Summary Additional Medical History not covered in history None additional. Sexual History concerns None reported. Physical exam in the last year? Yes ([facility] - .) Pain Screening Current pain? No Pain in the last few months? No Medications Is the patient compliant with medications? Yes Does the patient have Jacobs Guardian in place? Not applicable Does the patient use complimentary health approaches? No Trauma/Abuse History History of trauma? No Questionnaires PHQ-9 Over the last 2 weeks, how often have you been bothered by any of the following problems? 1. Little interest or pleasure in doing things: not at all 2. Feeling down, depressed, or hopeless: not at all 3. Trouble falling or staying asleep, or sleeping too much: not at all 4. Feeling tired or having little energy: nearly every day 5. Poor appetite or overeating: more than half the days 6. Feeling bad about yourself - or that you are a failure or have let yourself or your family down: not at all 7. Trouble concentrating on things, such as reading the newspaper or watching television: not at all 8. Moving or speaking so slowly that other people could have noticed. Or the opposite - being so fidgety or restless that you have been moving around a lot more than usual: several days 9. Thoughts that you would be better off or of hurting yourself in some way: not at all Total score: 6 Depression Screening Interpretation: Positive (From new PT pack completed on 09/13/2024.) Depression Screening Done: Yes Source: Developed by Drs. Mc Crawford, Sandra Zaldivar, Carlitos Rose and colleagues, with an educational laura from [employer]. Binge Eating Scale Group 1 A. I don't feel self-conscious about my wt. or body size when I'm with others. B. I feel concerned about how I look to others, but it normally does not make me fell disappointed with myself C. I do get self-conscious about my appearance and wt. which makes me feel disappointed in myself. D. I feel very self-conscious about my wt. and frequently I feel intense shame and disgust for myself. I try to avoid social contacts because of my self-consciousness. Response Group 1: A Group 2 A. I don't have any difficulty eating slowly in the proper manner. B. Although I seem to gobble down foods, I don't end up feeling stuffed because of eating to much. C. At times, I tend to eat quickly and then, I feel uncomfortably full afterwards. D. I have the habit of bolting down my food, without really chewing it. When this happens I usually feel uncomfortably stuffed because I've eaten to much. Response Group 2: A Group 3 A. I feel capable to control my eating urges when I want to. B. I feel like I have failed to control my eating more than the average person. C. I feel utterly helpless when it comes to feeling in control of my eating urges. D. Because I feel so helpless about controlling my eating I have become very desperate about trying to get control. Response Group 3: A Group 4 A. I don't have the habit of eating when I'm bored. B. I sometimes eat when I'm bored, but often I'm able to get busy and get my mind off food. C. I have a regular habit of eating when I'm bored, but occasionally, I can use some other activity to get my mind off eating. D. I have a strong habit of eating when I'm bored. Nothing seems to help me breath the habit. Response Group 4: A Group 6 A. I don't feel any guilt or self-hate after I overeat. B. After I overeat, occasionally I feel guilt or self-hate. C. Almost all the time I experience strong guilt or self-hate after I overeat. Response Group 6: A Group 7 A. I don't lose total control of my eating when dieting even after periods when I overeat. B. Sometimes when I eat a forbidden food on a diet, I feel like I blew it and eat even more. C. Frequently, I have the habit of saying to myself, I've blown it now, why not go all the way, when I overeat on a diet. When that happens I eat more. D. I have a regular habit of starting a strict diets for myself but I break the diets by going on an eating binge. My life seems to be either a feast or famine. Response Group 7: A Group 8 A. I rarely eat so much food that I feel uncomfortably stuffed afterwards. B. Usually about once a month, I each such a quantity of food, I end up feeling very stuffed. C. I have regular periods during the month when I eat large amounts of food, either at mealtime or at snacks. D. I eat so much food that I regularly feel quite uncomfortable after eating and sometimes a bit nauseous. Response Group 8: A Group 9 A. My level of calorie intake does not go up very high or go down very low on a regular basis. B. Sometimes after I overeat, I will try to reduce my caloric intake to almost nothing to compensate for the excess calories I've eaten. C. I have a regular habit of overeating during the night. It seems that my routine is not to be hungry in the morning but overeat in the evening. D. In my adult years, I have had week-long periods where I practically starve myself. This follows periods when I overeat. It seems I live a life of either feast or famine. Response Group 9: A Group 10 A. I usually am able to stop eating when I want to. I know when enough is enough. B. Every so often, I experience a compulsion to eat which I can't seem to control. C. Frequently, I experience strong urges to eat which I seem unable to control, but at other times I can control my eating urges. D. I feel incapable of controlling urges to eat. I have a fear of not being able to stop eating voluntarily. Response Group 10: A Group 11 A. I don't have any problem stopping eating when I feel full. B. I usually can stop eating when I feel full but occasionally overeat leaving me feeling uncomfortably stuffed. C. I have a problem stopping eating once I start and usually I feel uncomfortably stuffed after I eat a meal. D. Because I have a problem not being able to stop eating when I want, I sometimes have to induce vomiting to relieve my stuffed feeling. Response Group 11: A Group 12 A. I seem to eat just as much when I'm with others, Family social gatherings as when I'm by myself. B. Sometimes, when I'm with other persons, I don't eat as much as I want to eat because I'm self-conscious about my eating. C. Frequently, I eat only a small amount of food when others are present, because I'm very embarrassed about my eating. D. I feel so ashamed about overeating that I pick times to overeat when I know no one will see me. I feel like a closet eater. Response Group 12: A Group 13 A. I eat three meals a day with only an occasional between meal snack. B. I eat 3 meals a day, but I also normally snack between meals. C. When I am snacking heavily, I get in the habit of skipping regular meals. D. There are regular periods when I seem to be continually eating, with no planned meals. Response Group 13: B Group 14 A. I don't think much about trying to control unwanted eating urges. B. At least some of the time, I feel my thoughts are pre-occupied with trying to control my eating urges. C. I feel that frequently I spend much time thinking about how much I ate or about trying not to eat anymore. D. It seems to me that most of my waking hours are pre-occupied by thoughts about eating or not eating. I feel like I'm constantly struggling not to eat. Response Group 14: A Group 15 A. I don't think about food a great deal. B. I have strong craving for food but they last only for brief periods of time. C. I have days when I can't seem to think about anything else but food. D. Most of my days seem to be pre-occupied with thoughts about food. I feel like I live to eat. Response Group 15: B Group 16 A. I usually know whether or not I'm physically hungry. I take the right portion of food to satisfy me. B. Occasionally, I feel uncertain about knowing whether or not I'm physically hungry. A these times it's hard to know how much food I should take to satisfy me. C. Even though I might know how many calories I should eat, I don't have any idea what is a normal amount of food for me. Response Group 16: A Binge Eating Score: 2 Score less than 17 Minimal Risk Score between 18-26 Moderate Risk Score between 27-46 High Risk Assessment & Plan Assessment & Plan (1) Adjustment disorder: Code(s): F43.20 - Adjustment disorder, unspecified (2) Inappropriate diet or eating habits: Code(s): Z72.4 - Inappropriate diet and eating habits (3) Pre-bariatric surgery psychological evaluation: Code(s): Z71.89 - Other specified counseling Plan The patient has not yet been cleared, as the assessment was not completed today. He will return next week to continue the evaluation. Next appointment: October 24, 2024, at 11:30 AM via Telehealth Telehealth Telehealth Telehealth Platform: [employer] Location of provider rendering services: other Location of patient: address on file Patient Identification confirmed using: Name, : Yes Telehealth method: voice only Patient verbally consented to treatment: Yes Patient verbally consented to billing insurance company: Yes Patient informed of any privacy concerns related to visit: Yes Minutes spent on Phone/Video with Pt.: 50 Coding Level of Care Code New Pt Tele Psy Diag Eval (94900) Patient Type New Diagnoses Adjustment disorder F43.20 Inappropriate diet or eating habits Z72.4 Pre-bariatric surgery psychological evaluation Z71.89 Time Spent (min) 50
--- OUTSIDE RECORDS SUMMARY | 2024-10-18 11:48 | XMS_ITS | Clinical Summary ---
Author Organization [address] Address [address] [place] [address] Phone Care Team Providers Care Adult Specialist Name Role Phone Julissa Hi MD Primary Care Prov ider Allergies No known active allergies Active Problems Problem Noted Date Diagnosed Date Unilateral undescended testicle 06/25/2023 Encounters Date Type Department Care Team Description 08/22/2024 Telephone Adult Medicine [address] [phone] Julissa Hi MD Referral (Dr [facility] Weight Management ) 08/17/2024 Telephone Adult Medicine [address] [phone] Julissa Hi MD Referral 07/21/2024 8:00 AM EDT Office Visit Adult Medicine [address] [phone] Julissa Hi MD Adult general medical examination [...] care for your loved ones. For example, exceptional children's teacher or elderly care for an older adult? [...] 7:30 AM EDT Office Visit Adult Medicine [address] [phone] Julissa Hi MD [address] [place] [id number] Health Maintenance Due Date Last Done Comments [...] Procedure Name Priority Date/Time Associated Diagnosis Comments XR CHEST 2 VIEWS Routine 10/06/2024 8:53 AM EDT COMPREHENSIVE METABOLIC PANEL Routine 07/26/2024 8:22 AM EDT Adult general medical examination LIPID PANEL WITH REFLEX TO DIRECT LDL Routine 07/26/2024 8:22 AM EDT Adult general medical examination from Last 3 Months Results * XR Chest 2 Views (10/06/2024 8:53 AM EDT) Anatomical Region Laterality Modality Body Radiographic Rajani ging us Reed Méndez MD IMG XR PROCEDURES Final R esult * (ABNORMAL) Lipid panel with reflex to direct LDL (07/26/2024 8:22 AM EDT) Cholesterol 164 0 - 200 mg/dL LAB CHEMISTRY METHOD 07/26/2024 11:13 AM EDT [facility] Triglycerides 130 0 - 150 mg/dL LAB CHEMISTRY METHOD 07/26/2024 11:13 AM EDT [facility] HDL 35(L) >=40 mg/dL LAB CHEMISTRY METHOD 07/26/2024 11:13 AM EDT [facility] LDL Calculated 103(H) 0 - 100 mg/dL LAB CHEMISTRY METHOD 07/26/2024 11:13 AM EDT [facility] VLDL Cholesterol Goran 26 mg/dL LAB CHEMISTRY METHOD 07/26/2024 11:13 AM T [facility] Non HDL Chol. (LDL+VLDL) 129 <145 mg/dL LAB CHEMISTRY METHOD 07/26/2024 11:13 AM EDT [facility] Chol/HDL Ratio 4.7(H) 0.0 - 4.4 LAB CHEMISTRY METHOD 07/26/2024 11:13 AM T [facility] Blood Venous blood specimen / Unknown Venipuncture / Unknown 07/26/2024 8:22 AM EDT 07/26/2024 8:22 AM EDT Julissa Hi MD LAB BLOOD ORDERABL ES Final Result [facility] [address] [place] [address], * Comprehensive metabolic panel (07/26/2024 8:22 AM EDT) Sodium 138 133 - 145 mmol/L LAB CHEMISTRY METHOD 07/26/2024 11:13 AM EDT [facility] Potassium 4.2 3.5 - 5.5 mmol/L LAB CHEMISTRY METHOD 07/26/2024 11:13 AM [facility] Chloride 106 96 - 110 mmol/L LAB CHEMISTRY METHOD 07/26/2024 11:13 AM [facility] CO2 29 21 - 32 mmol/L LAB CHEMISTRY METHOD 07/26/2024 11:13 AM [facility] Anion Gap 3 3 - 11 LAB CHEMISTRY METHOD 07/26/2024 11:13 AM [facility] Glucose 96 70 - 100 mg/dL LAB CHEMISTRY METHOD 07/26/2024 11:13 AM [facility] BUN 14 5 - 25 mg/dL LAB CHEMISTRY METHOD 07/26/2024 11:13 AM [facility] Creatinine 1.22 0.70 - 1.30 mg/dL LAB CHEMISTRY METHOD 07/26/2024 11:13 AM [facility] eGFR 78 >=60 mL/min/1. 73m2 LAB CHEMISTRY METHOD 07/26/2024 11:13 AM [facility] Comment:Calculation based on the??Chronic Kidney Disease Epidemiology Collaboration (CKD-EPI) equation refit??without adjustment for race. BUN/Creatinine Ratio 11.5 LAB CHEMISTRY METHOD 07/26/2024 11:13 AM [facility] Calcium 9.4 8.5 - 10.5 mg/dL LAB CHEMISTRY METHOD 07/26/2024 11:13 AM [facility] AST (SGOT) 25 10 - 42 unit/L LAB CHEMISTRY METHOD 07/26/2024 11:13 AM [facility] ALT (SGPT) 47 10 - 60 unit/L LAB CHEMISTRY METHOD 07/26/2024 11:13 AM [facility] Alkaline Phosphatase 108 42 - 121 unit/L LAB CHEMISTRY METHOD 07/26/2024 11:13 AM [facility] Total Protein 7.3 6.0 - 8.0 g/dL LAB CHEMISTRY METHOD 07/26/2024 11:13 AM EDT [facility] Albumin 3.9 3.2 - 5.0 g/dL LAB CHEMISTRY METHOD 07/26/2024 11:13 AM EDT [facility] Total Bilirubin 0.8 0.0 - 1.4 mg/dL LAB CHEMISTRY METHOD 07/26/2024 11:13 AM EDT [facility] Blood Venous blood specimen / Unknown Venipuncture / Unknown 07/26/2024 8:22 AM EDT 07/26/2024 8:22 AM EDT us Julissa Hi MD LAB BLOOD ORDERABL ES Final Result [facility] [address] [place] [address], [place] [phone] from Last 3 Months Insurance [facility] Care Teams Adult Specialist Relationship Specialty Start Date End Date Julissa Hi MD [address] [place] [id number] PCP - General 02/10/23
== END 2024-10-18 10:52 | disposition home or self-care (01) ==
LOC: HO.HBST 10:13
PROVIDERS: PCP Internal Medicine; Visit Provider Counselor Mental Health
DX: F43.20 Adjustment disorder, unspecified (principal); Z72.4 Inappropriate diet and eating habits; Z71.89 Other specified counseling
CPT/HCPCS: 90791

== ENCOUNTER 2024-10-24 11:44 | Outpatient (AMB) | payer OTHER, SELFPAY ==
--- NOTE | 2024-10-24 11:30 | A.OFFWM_ITS ---
Intake Intake Visit Reasons: TV BH Intake Part 2 Allergies No Known Allergies Allergy (Verified 10/05/24 11:54) [facility] Medical History Anxiety Hyperlipidemia GERD (gastroesophageal reflux disease) BMI 36.0-36.9,adult Obesity Surgical History No history of previous surgery Family History Mother No problems noted. Father No problems noted. Social History Alcohol intake: never Patient Tobacco Use Status: Never used Tobacco Behavioral Health Assessment Weight Management Therapy Therapy Notes Details The patient is a 39-year-old male presenting for a second visit to continue the behavioral health assessment as part of the surgical weight loss program. He reported that his primary care physician initially referred him for weight loss due to sleep apnea and obesity. The patient denies any history of mental health treatment, psychiatric hospitalization, or crisis intervention. She also denies any current or past concerns related to suicidal ideation, suicide attempts, self-harm, or harm to others. No history of substance use is reported. There is no indication of emotional or stress-related eating, and her Binge Eating Scale (BES) score reflects a low risk for binge eating behaviors. Her PHQ-9 results indicate no active depressive symptoms. The mental status exam was within normal limits, with no evidence of impaired functioning. At this time, the patient is cleared from a behavioral health standpoint to proceed with the surgical weight loss program. Presenting Concerns Referral Source WMP-Provider. Reason for referral Completion of behavioral health assessment as part of process for weight-loss surgery. Precipitating Event Obesity. Living Situation Current Living Situation Own At risk of losing current housing? No Satisfied with current living situation? Yes Comments PT lives with his and 2 stepchildren. Food/Weight/Diet Expectations of change PT started the program at 287 lbs, and his goal is to be at least 200Lbs post-op. The initial goal was to lose 10% of his weight before surgery, which is about 27 lbs. Ultimate weight goal: 260 lbs. before surgery. The patient wants to be at least 200 lbs. Recent weight as of 10/20/2024 was 267 lbs PT is implementing the following: Current meal plan: 2 protein shakes, 2 to 2.5 protein bars, and one meal per day. Exercise plan: using the elliptical at home 5 days a week, burning 400 calories. Scale: Yes. Communication with provider: . History/Relationship with food PT reports he loves carbs and sweets, and at times he would skip meals or won't have a steady meal schedule and would have multiple carbs on meals or would snack multiple times at day. Example of meals before starting the program: Breakfast: skip mostly or a sandwich. Lunch: skip/ would have only a juice. Dinner: @7pm, rice, beans, meat. Snacks: multiple. Drinks/Liquids: Coffee (1 cup/day with sugar), tea: none, soda: 3 cans a week, juice: 1 cup/day, ETOH: none History/Relationship with weight Pt reports he was a healthy weight in childhood, as a kid and teen he was very active and played baseball, then once he became an adult and stopped playing sports, he started gaining weight. In the last 10 years, the patient's Lowest weight was 225Lbs and the highest 287Lbs History/Relationship with dieting Diets and gym membership.- 2 years ago did it and lost 25 Lbs. Owens all the weight back once he stopped. Binge Eating Do you frequently eat large amounts of food in short periods of time, not feeling physically hungry? No Do you feel out of control when you eat a large amount of food in a short period of time? Yes Do you eat large amounts of food rapidly and typically alone? No Night Eating Do you wake up at least once during the night to eat? No If you wake up in the night, do you find that it is necessary to eat something in order to fall back asleep? No Do you have little or no appetite in the morning and feel very hungry in the evening, often overeating between dinner and when you go to bed? Yes Social History Family history and relationship PT is 5 years ago. Currently lives with his and her 2 children (They are 21 and 18) He has a 14 year old son who lives with his mother. Parents alive, they live in . He has 9 siblings, 1 from mom and dad and the others are from her father's side. Parental/Familial chiropractic assistant obligations 14 year old son. His mother has full custody now, but he has him multiple times at year. Developmental history and status None reported. Currently WNL. Social support . Community support None Catholic/Spirituality Christianity. Cultural/Ethnic information PT has been in 6 years ago. He was born and raised in [facility]. Legal Involvement and History Current or historical involvement with the legal system? None. Education Highest grade completed HS. Preferred learning style Learn by doing and Visual Currently enrolled in educational program? No Interested in further educational program? 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 Employment Employment Status Other ([employer] Wants help to find employment? No Meaningful activities Video games, movies, Financial Situation Describe current financial situation Comfortable Financial assistance? None Service Service? No Mental Health and Addiction Treatment Current/Past substance abuse? No Comments Alcohol: Socially, 1-2 times at month 1 glass of wine. Cigarettes/Tobacco: none. Vaping: None Cannabis/Edibles: None. Current/Past addictive behavior concerns? No Psychiatric history PT reports he has never attended counseling, or even been in crisis or inpatient for mental health. There is no history and/or current concern about SI/SA and self-harm or other harm. Medical and Physical Health Summary Additional Medical History not covered in history None additional. Sexual History concerns None reported. Physical exam in the last year? Yes ([facility] - .) Pain Screening Current pain? No Pain in the last few months? No Medications Is the patient compliant with medications? Yes Does the patient have Jacobs Guardian in place? Not applicable Does the patient use complimentary health approaches? No Trauma/Abuse History History of trauma? No Questionnaires PHQ-9 Over the last 2 weeks, how often have you been bothered by any of the following problems? 1. Little interest or pleasure in doing things: not at all 2. Feeling down, depressed, or hopeless: not at all 3. Trouble falling or staying asleep, or sleeping too much: not at all 4. Feeling tired or having little energy: not at all 5. Poor appetite or overeating: not at all 6. Feeling bad about yourself - or that you are a failure or have let yourself or your family down: not at all 7. Trouble concentrating on things, such as reading the newspaper or watching television: not at all 8. Moving or speaking so slowly that other people could have noticed. Or the opposite - being so fidgety or restless that you have been moving around a lot more than usual: not at all 9. Thoughts that you would be better off or of hurting yourself in some way: not at all Total score: 0 Depression Screening Interpretation: Negative Depression Screening Done: Yes 55481 - PHQ-9 Billing: Yes Source: Developed by Drs. Mc Crawford, Sandra Zaldivar, Carlitos Rose and colleagues, with an educational laura from [employer]. Binge Eating Scale Group 1 A. I don't feel self-conscious about my wt. or body size when I'm with others. B. I feel concerned about how I look to others, but it normally does not make me fell disappointed with myself C. I do get self-conscious about my appearance and wt. which makes me feel disappointed in myself. D. I feel very self-conscious about my wt. and frequently I feel intense shame and disgust for myself. I try to avoid social contacts because of my self- consciousness. Response Group 1: A Group 2 A. I don't have any difficulty eating slowly in the proper manner. B. Although I seem to gobble down foods, I don't end up feeling stuffed because of eating to much. C. At times, I tend to eat quickly and then, I feel uncomfortably full afterwards. D. I have the habit of bolting down my food, without really chewing it. When this happens I usually feel uncomfortably stuffed because I've eaten to much. Response Group 2: A Group 3 A. I feel capable to control my eating urges when I want to. B. I feel like I have failed to control my eating more than the average person. C. I feel utterly helpless when it comes to feeling in control of my eating urges. D. Because I feel so helpless about controlling my eating I have become very desperate about trying to get control. Response Group 3: A Group 4 A. I don't have the habit of eating when I'm bored. B. I sometimes eat when I'm bored, but often I'm able to get busy and get my mind off food. C. I have a regular habit of eating when I'm bored, but occasionally, I can use some other activity to get my mind off eating. D. I have a strong habit of eating when I'm bored. Nothing seems to help me breath the habit. Response Group 4: A Group 6 A. I don't feel any guilt or self-hate after I overeat. B. After I overeat, occasionally I feel guilt or self-hate. C. Almost all the time I experience strong guilt or self-hate after I overeat. Response Group 6: A Group 7 A. I don't lose total control of my eating when dieting even after periods when I overeat. B. Sometimes when I eat a forbidden food on a diet, I feel like I blew it and eat even more. C. Frequently, I have the habit of saying to myself, I've blown it now, why not go all the way, when I overeat on a diet. When that happens I eat more. D. I have a regular habit of starting a strict diets for myself but I break the diets by going on an eating binge. My life seems to be either a feast or famine. Response Group 7: A Group 8 A. I rarely eat so much food that I feel uncomfortably stuffed afterwards. B. Usually about once a month, I each such a quantity of food, I end up feeling very stuffed. C. I have regular periods during the month when I eat large amounts of food, either at mealtime or at snacks. D. I eat so much food that I regularly feel quite uncomfortable after eating and sometimes a bit nauseous. Response Group 8: A Group 9 A. My level of calorie intake does not go up very high or go down very low on a regular basis. B. Sometimes after I overeat, I will try to reduce my caloric intake to almost nothing to compensate for the excess calories I've eaten. C. I have a regular habit of overeating during the night. It seems that my routine is not to be hungry in the morning but overeat in the evening. D. In my adult years, I have had week-long periods where I practically starve myself. This follows periods when I overeat. It seems I live a life of either feast or famine. Response Group 9: A Group 10 A. I usually am able to stop eating when I want to. I know when enough is enough. B. Every so often, I experience a compulsion to eat which I can't seem to control. C. Frequently, I experience strong urges to eat which I seem unable to control, but at other times I can control my eating urges. D. I feel incapable of controlling urges to eat. I have a fear of not being able to stop eating voluntarily. Response Group 10: A Group 11 A. I don't have any problem stopping eating when I feel full. B. I usually can stop eating when I feel full but occasionally overeat leaving me feeling uncomfortably stuffed. C. I have a problem stopping eating once I start and usually I feel uncomfortably stuffed after I eat a meal. D. Because I have a problem not being able to stop eating when I want, I sometimes have to induce vomiting to relieve my stuffed feeling. Response Group 11: A Group 12 A. I seem to eat just as much when I'm with others, Family social gatherings as when I'm by myself. B. Sometimes, when I'm with other persons, I don't eat as much as I want to eat because I'm self-conscious about my eating. C. Frequently, I eat only a small amount of food when others are present, because I'm very embarrassed about my eating. D. I feel so ashamed about overeating that I pick times to overeat when I know no one will see me. I feel like a closet eater. Response Group 12: A Group 13 A. I eat three meals a day with only an occasional between meal snack. B. I eat 3 meals a day, but I also normally snack between meals. C. When I am snacking heavily, I get in the habit of skipping regular meals. D. There are regular periods when I seem to be continually eating, with no planned meals. Response Group 13: B Group 14 A. I don't think much about trying to control unwanted eating urges. B. At least some of the time, I feel my thoughts are pre-occupied with trying to control my eating urges. C. I feel that frequently I spend much time thinking about how much I ate or about trying not to eat anymore. D. It seems to me that most of my waking hours are pre-occupied by thoughts a bout eating or not eating. I feel like I'm constantly struggling not to eat. Response Group 14: A Group 15 A. I don't think about food a great deal. B. I have strong craving for food but they last only for brief periods of time. C. I have days when I can't seem to think about anything else but food. D. Most of my days seem to be pre-occupied with thoughts about food. I feel like I live to eat. Response Group 15: B Group 16 A. I usually know whether or not I'm physically hungry. I take the right portion of food to satisfy me. B. Occasionally, I feel uncertain about knowing whether or not I'm physically hungry. A these times it's hard to know how much food I should take to satisfy me. C. Even though I might know how many calories I should eat, I don't have any idea what is a normal amount of food for me. Response Group 16: A Binge Eating Score: 2 Score less than 17 Minimal Risk Score between 18-26 Moderate Risk Score between 27-46 High Risk Assessment & Plan Assessment & Plan (1) Adjustment disorder: Code(s): F43.20 - Adjustment disorder, unspecified (2) Inappropriate diet or eating habits: Code(s): Z72.4 - Inappropriate diet and eating habits (3) Pre-bariatric surgery psychological evaluation: Code(s): Z71.89 - Other specified counseling Plan The patient has been cleared from a behavioral health standpoint and may be submitted for surgical approval when ready. A post-operative behavioral health follow-up will be scheduled 1-3 weeks post- op. Next reba: 1-3 wks PO Telehealth Telehealth Telehealth Platform: Telephone Location of provider rendering services: practice address Location of patient: address on file Patient Identification confirmed using: Name, : Yes Telehealth method: voice only Patient verbally consented to treatment: Yes Patient verbally consented to billing insurance company: Yes Patient informed of any privacy concerns related to visit: Yes Minutes spent on Phone/Video with Pt.: 50 Coding Level of Care Code Established Pt Tele Psytx 45 mins (22480) Patient Type Established Diagnoses Adjustment disorder F43.20 Inappropriate diet or eating habits Z72.4 Pre-bariatric surgery psychological evaluation Z71.89 Additional Codes PHQ-9 - 18063 - PHQ-9 Billing: Yes ([id number]) Time Spent (min) 50
--- OUTSIDE RECORDS SUMMARY | 2024-10-24 13:19 | XMS_ITS | Clinical Summary ---
Author Organization [facility] [address] [place] [address] [place] [address] Phone Care Team Providers Care Dietary Aide Cook Name Role Phone Julissa Hi MD Primary Care Prov ider Allergies No known active allergies Active Problems Problem Noted Date Diagnosed Date Unilateral undescended testicle 06/25/2023 Encounters Date Type Department Care Team Description 08/22/2024 Telephone Adult Medicine [address] [phone] Julissa Hi MD Referral ([facility] Weight Management ) 08/17/2024 [place] [facility] [address] [phone] Julissa Hi MD Referral from Last 3 Months Immunizations Name Administration [...] for your loved ones. For example, child care attendant or elderly care for an older adult? [...] 7:30 AM EDT Office Visit Adult Medicine [address] [phone] Julissa Hi MD [address] [place] [phone] Health Maintenance Due Date Last Done Comments [...] LAB CHEMISTRY METHOD 07/26/2024 11:13 AM EDT [facility] Triglycerides 130 0 - 150 mg/dL LAB CHEMISTRY METHOD 07/26/2024 11:13 AM EDT [facility] HDL 35(L) >=40 mg/dL LAB CHEMISTRY METHOD 07/26/2024 11:13 AM EDT [facility] LDL Calculated 103(H) 0 - 100 mg/dL LAB CHEMISTRY METHOD 07/26/2024 11:13 AM EDT [facility] VLDL Cholesterol Goran 26 mg/dL LAB CHEMISTRY METHOD 07/26/2024 11:13 AM EDT [facility] Non HDL Chol. (LDL+VLDL) 129 <145 mg/dL LAB CHEMISTRY METHOD 07/26/2024 11:13 AM EDT [facility] Chol/HDL Ratio 4.7(H) 0.0 - 4.4 LAB CHEMISTRY METHOD 07/26/2024 11:13 AM [facility] Blood Venous blood specimen / Unknown Venipuncture / Unknown 07/26/2024 8:22 AM EDT 07/26/2024 8:22 AM EDT Julissa Hi MD LAB BLOOD ORDERABL ES Final Result [facility] [address] [place] [address], * Comprehensive metabolic panel (07/26/2024 8:22 AM EDT) Sodium 138 133 - 145 mmol/L LAB CHEMISTRY METHOD 07/26/2024 11:13 AM T [facility] Potassium 4.2 3.5 - 5.5 mmol/L LAB CHEMISTRY METHOD 07/26/2024 11:13 AM [facility] Chloride 106 96 - 110 mmol/L LAB CHEMISTRY METHOD 07/26/2024 11:13 AM [facility] CO2 29 21 - 32 mmol/L LAB CHEMISTRY METHOD 07/26/2024 11:13 AM [facility] Anion Gap 3 3 - 11 LAB CHEMISTRY METHOD 07/26/2024 11:13 AM [facility] Glucose 96 70 - 100 mg/dL LAB CHEMISTRY METHOD 07/26/2024 11:13 AM [facility] BUN 14 5 - 25 mg/dL LAB CHEMISTRY METHOD 07/26/2024 11:13 AM [facility] Creatinine 1.22 0.70 - 1.30 mg/dL LAB CHEMISTRY METHOD 07/26/2024 11:13 AM [facility] eGFR 78 >=60 mL/min/1. 73m2 LAB CHEMISTRY METHOD 07/26/2024 11:13 AM [facility] Comment:Calculation based on the??Chronic Kidney Disease Epidemiology Collaboration (CKD-EPI) equation refit??without adjustment for race. BUN/Creatinine Ratio 11.5 LAB CHEMISTRY METHOD 07/26/2024 11:13 AM [facility] Calcium 9.4 8.5 - 10.5 mg/dL LAB CHEMISTRY METHOD 07/26/2024 11:13 AM [facility] AST (SGOT) 25 10 - 42 unit/L LAB CHEMISTRY METHOD 07/26/2024 11:13 AM [facility] ALT (SGPT) 47 10 - 60 unit/L LAB CHEMISTRY METHOD 07/26/2024 11:13 AM [facility] Alkaline Phosphatase 108 42 - 121 unit/L LAB CHEMISTRY METHOD 07/26/2024 11:13 AM [facility] Total Protein 7.3 6.0 - 8.0 g/dL LAB CHEMISTRY METHOD 07/26/2024 11:13 AM [facility] Albumin 3.9 3.2 - 5.0 g/dL LAB CHEMISTRY METHOD 07/26/2024 11:13 AM [facility] Total Bilirubin 0.8 0.0 - 1.4 mg/dL LAB CHEMISTRY METHOD 07/26/2024 11:13 AM EDT [facility] Blood Venous blood specimen / Unknown Venipuncture / Unknown 07/26/2024 8:22 AM EDT 07/26/2024 8:22 AM EDT us Julissa Hi MD LAB BLOOD ORDERABL ES Final Result [facility] [address] [place] [address], [place] [phone] from Last 3 Months Insurance [facility] [employer] Care Teams Dietary Aide Cook Relationship Specialty Start Date End Date Julissa Hi MD [address] [place] [phone] PCP - General 02/10/23
== END 2024-10-24 12:29 | disposition home or self-care (01) ==
LOC: HO.HBST 11:44
PROVIDERS: PCP Internal Medicine; Visit Provider Counselor Mental Health
DX: F43.20 Adjustment disorder, unspecified (principal); Z72.4 Inappropriate diet and eating habits; Z71.89 Other specified counseling
CPT/HCPCS: 90834

== ENCOUNTER 2024-11-23 08:24 | Outpatient (REF) | payer OTHER, SELFPAY | END 2024-11-23 08:25 | disposition home or self-care (01) | LOC: HO.LNP 08:24 | PROVIDERS: Surgery; PCP Internal Medicine; Visit Provider Physician Assistant Surgical | DX: K21.9 Gastro-esophageal reflux disease without esophagitis (principal); E78.5 Hyperlipidemia, unspecified; E66.9 Obesity, unspecified; Z68.36 Body mass index [BMI] 36.0-36.9, adult | CPT/HCPCS: 83013 ==

== ENCOUNTER 2024-11-25 11:08 | Outpatient (REF) | payer OTHER, SELFPAY ==
--- NOTE | ~2024-11-25 | US_ITS ---
EXAMINATION: US ABDOMEN COMPLETE WITH LIVER ELASTOGRAPHY HISTORY: E66.9 - Obesity, unspecified TECHNIQUE: Real-time grayscale ultrasound imaging of the abdomen was performed and images were reviewed. COMPARISON: There are no prior studies available for comparison. FINDINGS: Liver: The right lobe of the liver measures 14.3 cm in size. The left lobe of the liver measures 8.6 cm in size. The liver demonstrates increased echotexture, consistent with steatosis. No focal mass or intrahepatic biliary ductal dilatation is identified. There is normal hepatopedal flow in the portal vein. Ultrasound elastography of the liver was performed with 10 separate measurements of the liver parenchyma with the patient in the supine position. Measurements were obtained approximately 2 cm below Gissel's capsule and perpendicular to the capsule. The median shear wave velocity is 1.56 m/s. The interquartile range/median (IQR/median) is 0.19. Gallbladder and biliary tree: The gallbladder is unremarkable, without evidence of calculi, wall thickening, or pericholecystic fluid. There is no sonographic Harvey sign. The common bile duct is normal in caliber measuring 3 mm. Kidneys: The right kidney measures 10.9 cm in length. The left kidney measures 12.2 cm in length. The kidneys are unremarkable, without evidence of masses, hydronephrosis, or calculi. Pancreas: The pancreas is obscured by bowel gas. Spleen: The spleen is normal in size and contour, measuring 12.4 cm in length. Abdominal aorta and inferior vena cava: The visualized portions of the abdominal aorta and inferior vena cava are normal in caliber. There is no free fluid in the abdomen. US/US abdomen comp w elastography IMPRESSION: Hepatic steatosis. The median shear wave velocity in the liver is 1.56 m/s, corresponding to a median liver stiffness of 7.32 kPa. The IQR/median value is 0.19. This is indicative of a poor quality data set, and the estimated liver stiffness may be unreliable. Findings are indicative of a low elastography value which rules out advanced chronic liver disease in asymptomatic patients. REFERENCE: Society of Radiologists in Ultrasound Liver Stiffness Thresholds (2020): LIVER STIFFNESS THRESHOLDS: *Shear wave velocity less than 1.3 m/s (Liver Stiffness equal or less than 5 kPa): High probability of being normal. *Shear wave velocity less than 1.7 m/s (Liver Stiffness less than 9 kPa): In the absence of other known clinical signs, rules out compensated advanced chronic liver disease. *Shear wave velocity between 1.7-2.1 m/s (Liver Stiffness 9-13 kPa): Suggestive of compensated advanced chronic liver disease but need further test for confirmation. *Shear wave velocity between 2.1-2.4 m/s (Liver Stiffness 13-17 kPa): Rules in compensated advanced chronic liver disease. *Shear wave velocity greater than 2.4 m/s (Liver Stiffness over 17 kPa): Suggestive of clinically significant portal hypertension. QUALITY OF DATA SET: *IQR/Median value equal or less than 0.15 implies a quality data set. *IQR/Median value over 0.15 implies a poor quality data set. SIGNIFICANT CHANGE FROM PRIOR EXAM: Significant change if liver stiffness measurement is 10% or greater from prior exam. OTHER CONSIDERATIONS: The stage of liver fibrosis may be overestimated in the setting of acute hepatitis, liver inflammation, elevated liver function tests, hepatic vascular congestion, obstructive cholestasis, non-fasting state, and infiltrative diseases such as amyloidosis and lymphoma. In some patients with NAFLD, the liver stiffness thresholds for compensated advanced chronic liver disease may be lower. In causes other than viral hepatitis and NAFLD, liver stiffness thresholds are not well established. Electronically signed by: Mc Michaels MD 11/25/2024 11:44 AM EDT
--- OUTSIDE RECORDS SUMMARY | 2024-11-25 11:41 | XMS_ITS | Data Portability ---
Author Organization [facility] Address [address] [place] [address] Assessment No assessment recorded. Plan of Treatment Reminders Order Date Submit Date Provider Last Modified By Organization Details Last Modified Time Details Appointments None record ed. Lab None record ed. Referral None record ed. Procedures None record ed. Surgeries None record ed. Imaging None record ed. Medication Orders None record ed. Patient TargetsNo targets recorded. Patient Instructions Encounter Date Encounter Id Patient Instructions Last Modified By Organization Details Last Modified Time 06/25/2023 [id number] This physical does not replace the annual physical to be performed by your PCP. There may be additional screening tests that they will perform that we do not in the urgent care setting. Failure to follow up as recommended may result in significant adverse health consequences. If your symptoms worsen or you develop new symptoms that concern you, go to the emergency department for further evaluation. [email or web address] Not available 06/25/2023 19:22:01 Reason for Referral None Reported. Procedures Surgical History Date Name Laterality Status Provider Name and Address Organization Details Recorded Time OC-DOT PHYSICAL completed [facility] [place] [facility] 06/25/2023 19:22:52 Imaging Results None recorded. Procedure Notes None recorded. Medical Equipment None Reported. Vitals None Recorded Social History None recorded. Functional Status None recorded. Mental Status None recorded. Family History Nothing Reported. Medical History No medical history recorded. Past Encounters Encounter ID Performer Location Encounter Start Date Encounter Closed Date Diagnosis/Indication Diagnosis SNOMED-CT Code Diagnosis ICD10 Code Diagnosis Note [id number] [facility] [address] [place] [address] 07/13/2021 18:29:15 07/13/2021 19:55:38 [id number] Obdulio Mckenna, CONCRETE INSPECTOR [address] [facility] [address] [place] [address] 06/25/2023 16:58:49 06/25/2023 19:23:37 History and physical examination, pre-employment [id number] Z02.1 Health Concerns Section Related Observation LastModified by Organization Detai ls LastModified Time None Recorded Concern Status LastModified by Organization Details LastModified Time None Recorded Advance Directives Directive None Recorded Payers Insurance Date Sequence Insurance Name Policy Number Policy Dueñas Covered Member ID Dueñas Member ID Guarantor Name 06/25/2023 OC-PAY AT TIME OF SERVICE 2022 Wolf Kessler OTHER OTHER Wolf Kessler 06/27/2023 PAY AT TOS Wolf Kessler OTHER LUIS Kessler
--- OUTSIDE RECORDS SUMMARY | 2024-11-25 11:41 | XMS_ITS | Clinical Summary ---
Author Organization [facility] [address] [place] [address] [place] [phone] Phone Care Team Providers Care Broomcorn Press Feeder Name Role Phone Julissa Hi MD Primary Care Prov ider Allergies No known active allergies Active Problems Problem Noted Date Diagnosed Date Unilateral undescended testicle 06/25/2023 Immunizations Name Administration Dates Next Due Influenza [...] care for your loved ones. For example, rn maternal child or elderly care for an older adult? [...] 77 07/21/2024 8:01 AM EDT Temperature 36.4 C (97.6 F) 07/21/2024 8:01 AM EDT Respiratory Rate 18 07/21/2024 8:01 AM EDT [...] 7:30 AM EDT Office Visit Adult Medicine [address] [phone] Julissa Hi MD [address] [place] [phone] Health Maintenance Due Date Last Done Comments Hepatitis B Vaccines (1 of 3 - 19+ 3-dose series) 2005 HIV Screening 06/12/2023 Hepatitis C Screening 06/12/2023 Influenza Vaccine (#1) 2025 06/25/2023 Depression Screening 07/20/2025 07/20/2024 Social [...] 5 Years) and At-Risk Patients (6 to 49 Years) Aged Out No longer eligible based [...] 2 VIEWS Routine 10/06/2024 8:53 AM EDT LIPID PANEL WITH REFLEX TO DIRECT LDL Routine 07/26/2024 8:22 AM EDT Adult general medical examination from Last 3 Months or Most Recently Relevant to Health Maintenance Results * XR Chest 2 Views (10/06/2024 8:53 AM EDT) Anatomical Region Laterality Modality Body Radiographic Rajani ging us Reed Méndez MD IMG XR PROCEDURES Final R esult * (ABNORMAL) Lipid panel with reflex to direct LDL (07/26/2024 8:22 AM EDT) Cholesterol 164 0 - 200 mg/dL LAB CHEMISTRY METHOD 07/26/2024 11:13 AM [facility] Triglycerides 130 0 - 150 mg/dL LAB CHEMISTRY METHOD 07/26/2024 11:13 AM [facility] HDL 35(L) >=40 mg/dL LAB CHEMISTRY METHOD 07/26/2024 11:13 AM [facility] LDL Calculated 103(H) 0 - 100 mg/dL LAB CHEMISTRY METHOD 07/26/2024 11:13 AM [facility] VLDL Cholesterol Goran 26 mg/dL LAB CHEMISTRY METHOD 07/26/2024 11:13 AM [facility] Non HDL Chol. (LDL+VLDL) 129 <145 mg/dL LAB CHEMISTRY METHOD 07/26/2024 11:13 AM EDT [facility] Chol/HDL Ratio 4.7(H) 0.0 - 4.4 LAB CHEMISTRY METHOD 07/26/2024 11:13 AM EDT [facility] Blood Venous blood specimen / Unknown Venipuncture / Unknown 07/26/2024 8:22 AM EDT 07/26/2024 8:22 AM EDT us Julissa Hi MD LAB BLOOD ORDERABL ES Final Result [id number] ([facility] [address] [place] [address], from Last 3 Months or Most Recently Relevant to Health Maintenance Insurance [facility] PUBLIC PL[facility] Care Teams Broomcorn Press Feeder Relationship Specialty Start Date End Date Julissa Hi MD [address] [place] [id number] PCP - General 02/10/23
== END 2024-11-25 11:09 | disposition home or self-care (01) ==
LOC: HO.US 11:08
PROVIDERS: PCP Internal Medicine; Visit Provider Surgery
DX: E66.9 Obesity, unspecified (principal); Z68.36 Body mass index [BMI] 36.0-36.9, adult; K21.9 Gastro-esophageal reflux disease without esophagitis; E78.5 Hyperlipidemia, unspecified
CPT/HCPCS: 76700; 76981

== ENCOUNTER → 2024-11-25 11:10 | Outpatient (BNV) | payer OTHER, SELFPAY | PROVIDERS: PCP Internal Medicine; Visit Provider Radiology Diagnostic Radiology | DX: K76.0 Fatty (change of) liver, not elsewhere classified (principal) | CPT/HCPCS: 76700 ==

== ENCOUNTER 2024-11-29 08:13 | Outpatient (AMB) | payer OTHER, SELFPAY ==
--- NOTE | 2024-11-28 23:17 | MHC.OFFVISWM ---
VS Expanded 11/28/24 23:18 Height 6 ft 2 in Weight 267 lb 6 oz BMI 34.3 Body Fat % 33.8 Body Fat Mass 98.4 Fat Free Mass 177.2 Visceral Fat Rating 17 Body Water % 47.8 Body Water Mass 127.9 Basal Metabolic Rate/Score 2,105 Intake Visit Reasons: TV Pre Op LSG 12/15/24 *INTEPRETER* Mother Helper Required: Yes Mother Helper Services: Mother Helper Present Information Interpreted: clinical only Allergies No Known Allergies Allergy (Verified 11/28/24 23:30) Medication List - Last Reconciled 11/28/24 by Reed Méndez MD cholecalciferol (vitamin D3) 125 mcg PO DAILY mecobalamin (vitamin B12) 1,000 mcg sublingual DAILY ondansetron 4 mg PO Q12H pantoprazole 40 mg PO DAILY polyethylene glycol 3350 17 grams PO DAILY sucralfate 10 mL PO BID thiamine HCl (vitamin B1) 100 mg PO DAILY HPI HPI TV Pre Op LSG 12/15/24 *INTEPRETER*: Details: Start time: 9.00am, End time: 9.30am I spent 25 minutes speaking with the patient on the phone plus an additional 5 minutes reviewing and updating records for a total of 30 minutes HPI Comments Details: Overall weight loss: 19.8lbs, or 6.9% TBWL Is doing 2 premade Premier shakes (4oz plus 4oz almond milk), 2.5 Fit Crunch protein bars and one meal (10 forks each) Exercise: treadmill PFSH Medical History Anxiety Hyperlipidemia GERD (gastroesophageal reflux disease) BMI 36.0-36.9,adult Obesity Surgical History No history of previous surgery Family History Mother No problems noted. Father No problems noted. Social History Alcohol intake: never Patient Tobacco Use Status: Never used Tobacco Physical Exam Vital Signs: BMI result Body Mass Index 34.3 Telehealth Telehealth Telehealth Platform: Telephone Location of provider rendering services: practice address Location of patient: address on file Patient Identification confirmed using: Name, : Yes Telehealth method: voice only Patient verbally consented to treatment: Yes Patient verbally consented to billing insurance company: Yes Patient informed of any privacy concerns related to visit: Yes Minutes spent on Phone/Video with Pt.: 30 Assessment & Plan Assessment & Plan (1) Obesity: Code(s): E66.9 - Obesity, unspecified Category: Medical Qualifiers: Body mass index: BMI 36.0-36.9 Obesity classification: adult class 2 (BMI 35 - 39.9) Obesity type: due to excess calories Serious obesity comorbidity presence: without serious comorbidity Qualified Code(s): E66.812 - Obesity, class 2; E66.09 - Other obesity due to excess calories; Z68.36 - Body mass index [BMI] 36.0-36.9, adult Plan: 1. Plan for lap sleeve gastrectomy including upper GI endoscopy. All tests has been completed and reviewed and the patient is cleared for the surgery. If diaphragmatic or ventral hernias are present at time of surgery, these will be repaired laparoscopically as well. The surgery does not replace the need to change your lifestlyle which is the cause of the obesity problem. The surgery provides the motivation to try again to change your lifestyle, it reduces the appetite and make the transition to a better lifestyle easier and doubles the amount of weight you would lose compared to doing the lifestyle change without the surgery. You will need to be on a liquid diet with protein shakes for 2 weeks before surgery to maximize weight loss and boost your nutritional status to recover better from surgery and also for the first two weeks after surgery to let the stomach heal before we introduce other foods. After the first 2 weeks we will introduce protein bars and soft foods like scrambled eggs, cottage cheese and yogurt and after the 6th week will introduce meat, fish and cooked vegetables in small amounts. Over time you should be able to eat everything in small amounts. Side effects like nausea, vomiting, heartburn or abdominal pain are not common in the practice unless you are not following in the practice. This operation requires lifetime commitment to following in our practice and communication with me. You will much less weight and experience side effects if you don?t communicate or not following in the practice. Complications are rare and in our practice is about 1/10 of the national average. However, you can develop bleeding that may require transfusion (hasn?t happened for year in the practice), you may from complications (we did not have any deaths in the practice) and infections. Infections are usually a result of breakdown in communication or not understanding or following directions correctly. They are difficult to treat, they can happen during the first 6 weeks, they may require to be in the hospital for weeks or even months, not being able to eat by mouth and you may have drains and surgeries to try and correct the issue. Other risks and complications include possible conversion to an open procedure, leaks, small bowel obstruction, blood clots, cardiac, or pulmonary complications, as intermediate complications such as ulcers, insufficient weight loss and vitamin deficiencies. So far he has proven to be an excellent communicator and very compliant with all our directions accomplishing a great weight loss. I believe that he is an excellent candidate and he is ready. 2. Preop prescriptions were provided and explained the purpose of each one. Need to be purchased preop. Start Pantoprazole now as you get it from the pharmacy, 1 pill per day. Sucralfate and Zofran are for after surgery as needed. 3. Bowel prep: please do 7 packets of Miralax mixing each one with a an 8oz glass of water, crystal light, gatorade zero, or propel on 12/13/24 and the same amount on 12/14/24. The Miralax you begin with one packet at a time in 8oz water or crystal light, gatorade zero, or propel as early in the day as you can and you do them back to back until you finish them. Continue the protein shakes during the bowel prep. 4. Needs to purchase 1oz medicine cups . 5. Needs to purchase Children's liquid Tylenol for postop pain control. 6. Avoid aspirin, motrin, Advil, Aleve, Ibuprofen, Naproxyn. Tylenol is OK. 7. He needs to purchase the Celebrate multivitamins from the hospital's gift shop. 8. Will do basic preop blood work-up any day between Thursday12/05/24 and Thursday12/09/24 fasting for 12 hours and is scheduled to see the Anesthesiologist prior to the day of surgery. 9. Importance of adherence to postop folllow-up and recommendations was underscored and he understands that. 10. Stop food and bars as of Thursday11/30/24 and continue with 5 Premier protein shakes ( 8oz of Premier shake and NOT the whole bottle) at 7am-9am, 10am-12pm, 1pm-3pm, 4pm-6pm and at 7pm-9pm 11. No soups, broths or V8 12. The patient's medical history has been reviewed and they are considered low risk for post op DVT and therefore DVT prophylaxis is not considered necessary. Travel after surgery was reviewed. The patient has not disclosed any travel plans during the first 30 days after surgery and they have been advised that within the first 30 days after surgery any bus, plane, train or car travel over 2 hours in duration is contraindicated due to the possibility of developing blood clots from immobility. Any travel, needs to include periods of ambulation of 10 minutes in duration every 2 hours. Patient was instructed to discuss any plans for travel during this period with their bariatric surgeon. 13. Please take at the day of surgery the following medications: NONE 14. Absolutely no smoking or vaping, or marijuana until the surgery and for at least the first 4 weeks. Only nicotine patches are allowed. 15. Send me weight measurements on 12/01/24 and 12/08/24 and then on 12/15/24, the day of surgery before you go to the hospital. 16. Avoid any steroids by mouth for any reason. Let me know if someone prescribes them to you 17. These instructions supersede anything else you read in the handbook, anything you watched in videos or classes or you were told by any other provider. If there is any conflict, you follow the above instructions and nothing else. Orders: Orders TSH reflex Free T4 11/28/24 E66.09 - Other obesity due to excess calories, E66.812 - Obesity, class 2, E78.5 - Hyperlipidemia, unspecified, Z68.36 - Body mass index [BMI] 36.0-36.9, adult Hemoglobin A1c 11/28/24 E66.09 - Other obesity due to excess calories, E66.812 - Obesity, class 2, E78.5 - Hyperlipidemia, unspecified, Z68.36 - Body mass index [BMI] 36.0-36.9, adult Lipid Panel 11/28/24 E66.09 - Other obesity due to excess calories, E66.812 - Obesity, class 2, E78.5 - Hyperlipidemia, unspecified, Z68.36 - Body mass index [BMI] 36.0-36.9, adult Type and Screen 11/28/24 E66.09 - Other obesity due to excess calories, E66.812 - Obesity, class 2, E78.5 - Hyperlipidemia, unspecified, Z68.36 - Body mass index [BMI] 36.0-36.9, adult Partial Thromboplastin Time 11/28/24 E66.09 - Other obesity due to excess calories, E66.812 - Obesity, class 2, E78.5 - Hyperlipidemia, unspecified, Z68.36 - Body mass index [BMI] 36.0-36.9, adult Complete Blood Count Auto Diff 11/28/24 E66.09 - Other obesity due to excess calories, E66.812 - Obesity, class 2, E78.5 - Hyperlipidemia, unspecified, Z68.36 - Body mass index [BMI] 36.0-36.9, adult Insulin 11/28/24 E66.09 - Other obesity due to excess calories, E66.812 - Obesity, class 2, E78.5 - Hyperlipidemia, unspecified, Z68.36 - Body mass index [BMI] 36.0-36.9, adult Comprehensive Met. Panel 11/28/24 E66.09 - Other obesity due to excess calories, E66.812 - Obesity, class 2, E78.5 - Hyperlipidemia, unspecified, Z68.36 - Body mass index [BMI] 36.0-36.9, adult Prothrombin Time INR 11/28/24 E66.09 - Other obesity due to excess calories, E66.812 - Obesity, class 2, E78.5 - Hyperlipidemia, unspecified, Z68.36 - Body mass index [BMI] 36.0-36.9, adult C Reactive Protein 11/28/24 E66.09 - Other obesity due to excess calories, E66.812 - Obesity, class 2, E78.5 - Hyperlipidemia, unspecified, Z68.36 - Body mass index [BMI] 36.0-36.9, adult Medications: New pantoprazole 40 mg PO DAILY 90 tabs 0RF K21.9 - Gastro-esophageal reflux disease without esophagitis sucralfate 10 mL PO BID 600 mL 2RF K21.9 - Gastro-esophageal reflux disease without esophagitis ondansetron Only take one every 12 hours as needed if you have nausea 4 mg PO Q12H 20 tabs 0RF nausea and vomiting R11.0 - Nausea polyethylene glycol 3350 Mix each measuring cup with 8oz of water, Crystal light, or Gatorade zero, or Propel and do 7 measuring cups on 12/14/23 and another 7 measuring cups on 12/15/23 17 grams PO DAILY 238 grams 0RF Z01.818 - Encounter for other preprocedural examination
[2024-11-28 23:18] VITALS: BMI 34.3
--- OUTSIDE RECORDS SUMMARY | 2024-11-29 08:17 | XMS_ITS | Data Portability ---
Author Organization [facility] Address [address] [place] [address] Assessment No assessment recorded. 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 [place] [address] 06/25/2023 16:58:49 06/25/2023 19:23:37 History and physical examination, pre-employment [id number] Z02.1 Health Concerns Section Related Observation LastModified [...]
--- OUTSIDE RECORDS SUMMARY | 2024-11-29 08:17 | XMS_ITS | Clinical Summary ---
Author Organization [facility] [address] [place] [address] [place] [phone] Phone Care Team Providers Care Wood Block Artist Name Role Phone Julissa Hi MD Primary [...] care for your loved ones. For example, childhood teacher or elderly care for an older [...] 7:30 AM EDT Office Visit Adult Medicine [address] [phone] Julissa Hi MD [address] [place] [phone] Health Maintenance Due Date Last Done Comments Hepatitis B Vaccines (1 of 3 - 19+ 3-dose series) 2005 HIV Screening 06/12/2023 Hepatitis C Screening 06/12/2023 Influenza Vaccine (#1) 2025 06/25/2023 Social Influencers of Health Screening 07/20/2025 07/20/2024 Cholesterol Screening (Lipid Panel) 07/26/2029 07/26/2024, 07/01/2023 DTaP,Tdap,and Td Vaccines (2 - Td or Tdap) 06/25/2030 06/25/2020 COVID-19 Vaccine Discontinued 01/16/2021, 12/18/2020 Depression Screening Completed 07/20/2024 HIB Vaccines Aged Out No longer eligi [...] mg/dL LAB CHEMISTRY METHOD 07/26/2024 11:13 AM [facility] Triglycerides 130 0 - 150 mg/dL LAB CHEMISTRY METHOD 07/26/2024 11:13 AM [facility] HDL 35(L) >=40 mg/dL LAB CHEMISTRY METHOD 07/26/2024 11:13 AM [facility] LDL Calculated 103(H) 0 - 100 mg/dL LAB CHEMISTRY METHOD 07/26/2024 11:13 AM [facility] VLDL Cholesterol Goran 26 mg/dL LAB CHEMISTRY METHOD 07/26/2024 11:13 AM [facility] Non HDL Chol. (LDL+VLDL) 129 <145 mg/dL LAB CHEMISTRY METHOD 07/26/2024 11:13 AM EDT [facility] Chol/HDL Ratio 4.7(H) 0.0 - 4.4 LAB CHEMISTRY METHOD 07/26/2024 11:13 AM EDT [facility] Blood Venous blood specimen / Unknown Venipuncture / Unknown 07/26/2024 8:22 AM EDT 07/26/2024 8:22 AM EDT us Julissa Hi MD LAB BLOOD ORDERABL ES Final Result [facility] ([facility] [address] [place] [address], from Last 3 Months or Most Recently Relevant to Health Maintenance Insurance [facility] PUBLIC PLANS Care Teams Wood Block Artist Relationship Specialty Start Date End Date Julissa Hi MD [address] [place] [id number] PCP - General 02/10/23
== END 2024-11-29 12:49 | disposition home or self-care (01) ==
LOC: HO.HBS 08:13
PROVIDERS: PCP Internal Medicine; Visit Provider Surgery
DX: E66.9 Obesity, unspecified (principal); Z68.34 Body mass index [BMI] 34.0-34.9, adult
CPT/HCPCS: 98014

== ENCOUNTER 2024-12-15 08:03 | Day surgery (SDC) | payer OTHER, SELFPAY ==
[2024-12-01 13:17] VITALS: BMI 34.3
[2024-12-06 08:22] LABS: MANUAL DIFF FLAG NO
[2024-12-06 08:49] LABS: Hematocrit 46.3 % (42.0-52.0); Hemoglobin 16.1 g/dl (14.0-18.0); Imm Gran Abs Auto 0.03 X10*3/uL (0.00-0.03); Imm Gran Pct Auto 0.4 % (0.0-0.4); Lymphocytes Absolute Auto 2.0 X10*3/uL (1.2-4.9); Mean Corpuscular HGB Conc 34.8 g/dl (31.0-36.0); Mean Corpuscular Hemoglobin 31.7 pg (27.0-33.0); Mean Corpuscular Volume 91.1 fL (80.0-98.0); NRBC Abs Auto 0.000 X10*3/uL (0.0-0.012); NRBC Pct Auto 0.0 /100WBC (0.0-0.2); Platelet Count 214 X10*3/uL (160-400); Red Blood Count 5.08 X10*6/uL (4.60-5.80); White Blood Count 8.1 X10*3/uL (4.8-10.8)
[2024-12-06 09:15] LABS: Hemoglobin A1C 135.9215 umol/L; Total Hemoglobin (HGBA1C) 4131.8339 umol/L
[2024-12-06 09:23] LABS: Alanine Aminotransferase 48 U/L (0-40); Albumin Level 4.5 g/dL (3.5-5.0); Alkaline Phosphatase 100 U/L (39-117); Anion Gap 14 (12-20); Aspartate Amino Transferase 29 U/L (5-37); Blood Urea Nitrogen 19 mg/dL (9-16); Calcium 9.1 mg/dL (8.4-10.2); Carbon Dioxide 24 mmol/L (22-29); Chloride 107 mmol/L (96-108); Cholesterol 173 mg/dL (<200); Creatinine Clr Calc Pharmacy 116.3; Estimated Glomerular Filt Rate > 60; HDL Cholesterol 33 mg/dL (>40); Potassium 4.0 mmol/L (3.3-5.1); Sodium 141 mmol/L (135-145); Total Protein 7.7 g/dL (6.5-8.0); Triglycerides 181 mg/dL (<150)
[2024-12-06 09:33] LABS: INTERNATIONAL NORM RATIO 1.0 (0.9-1.1); Prothrombin Time 11.2 SEC (10.9-12.4)
[2024-12-06 09:36] LABS: Partial Thromboplastin Time 25.7 SEC (26.0-36.8)
--- NOTE | 2024-12-13 15:04 | HO.ANESPROP2 ---
Documented by User: Chuyita Minor NP 12/13/24 15:05 HPI - Anesthesia Eval Consult details Narrative: 39yo M for Gastrectomy Sleeve,EGD,possible Diaphragmatic Hernia,possible Ventral Hernia,possible Open PMFSH Active Problems Active Problems: All Active Problems H. pylori infection (Acute) Vitamin B1 deficiency (Acute) Vitamin B12 deficiency (Acute) Vitamin D deficiency (Acute) Anxiety (Acute) Hyperlipidemia (Acute) GERD (gastroesophageal reflux disease) (Acute) BMI 36.0-36.9,adult (Acute) Obesity (Acute) Past Medical History Medical History DIPAK (obstructive sleep apnea) Anxiety Hyperlipidemia GERD (gastroesophageal reflux disease) BMI 36.0-36.9,adult Obesity Family History Family History Mother No problems noted. Father No problems noted. Surgical History Surgical History History of surgery History of esophagogastroduodenoscopy (EGD) History of Problems with Anesthesia: No Social History Social History Are you a primary primary care nurse to a significant other at home: No Do you presently have visiting nurse or other home services: No Alcohol intake: never Patient Tobacco Use Status: Never used Tobacco Use of substances other than those prescribed or required for medical reasons: No Have you been hit, kicked, punched, or otherwise hurt by someone within the past year? If so, by whom?: No Spiritual Healthcare Practices: no Christianity Healthcare Practices: no Cultural Healthcare Practices: no Are you DNR?: No Advance Directives: No ( is primary contact) Advance Directives Information Provided: Yes Advance Directives on File: No Poor oral hygiene: No Meds Allergies Allergy/AdvReac Type Severity Reaction Status Date / Time No Known Allergies Allergy Verified 12/15/24 08:52 Exam Height,Weight and Vital Signs: Height 6 ft 2 in Weight 121.109 kg Pertinent Lab Results Pertinent Lab Results: Laboratory Tests 12/06/24 12/06/24 08:10 08:20 WBC 8.1 RBC 5.08 Hgb 16.1 Hct 46.3 MCV 91.1 MCH 31.7 MCHC 34.8 RDW 12.3 Plt Count 214 MPV 10.4 Immature Gran % (Auto) 0.4 Neut % (Auto) 64.5 Lymph % (Auto) 25.0 [place] % (Auto) 9.1 Eos % (Auto) 0.6 Baso % (Auto) 0.4 Lymph # (Auto) 2.0 [place] # (Auto) 0.7 Eos # (Auto) 0.1 Baso # (Auto) 0.0 Abs Immat Gran (auto) 0.03 Absolute Neuts (auto) 5.2 Absolute Nucleated RBC 0.000 Nucleated RBC % (auto) 0.0 PT 11.2 INR 1.0 APTT 25.7 L Sodium 141 Potassium 4.0 Chloride 107 Carbon Dioxide 24 Anion Gap 14 BUN 19 H Creatinine 1.19 Estim Creat Clear Calc 116.3 Estimated GFR > 60 Random Glucose 96 Estimat Average Glucose 103 Hemoglobin A1c % 5.2 Insulin Level 39 H Calcium 9.1 Total Bilirubin 0.6 AST 29 ALT 48 H Alkaline Phosphatase 100 C-Reactive Protein 0.22 Total Protein 7.7 Albumin 4.5 Triglycerides 181 H Cholesterol 173 LDL Cholesterol, Calc 104 H HDL Cholesterol 33 L TSH 1.05 Blood Type O Positive Antibody Screen NEGATIVE Narrative Narrative: EKG 09/2024 Vent. Rate : 61 BPM Atrial Rate : 61 BPM P-R Int : 194 ms QRS Dur : 92 ms QT Int : 418 ms P-R-T Axes : 47 14 25 degrees QTcB Int : 420 ms Normal sinus rhythm Normal ECG No previous ECGs available Assessment and Plan Assessment Anesthesia Assessment: Chart Reviewed Final Anesthetic Review History of Problems with Anesthesia: No Documented by User: Elizabeth Garcia MD 12/15/24 10:57 [facility] Past Medical History Medical History DIPAK (obstructive sleep apnea) Anxiety Hyperlipidemia GERD (gastroesophageal reflux disease) BMI 36.0-36.9,adult Obesity Family History Family History Mother No problems noted. Father No problems noted. Surgical History Surgical History History of surgery History of esophagogastroduodenoscopy (EGD) Social History Social History Are you a primary primary care nurse to a significant other at home: No Do you presently have visiting nurse or other home services: No Alcohol intake: never Patient Tobacco Use Status: Never used Tobacco Use of substances other than those prescribed or required for medical reasons: No Have you been hit, kicked, punched, or otherwise hurt by someone within the past year? If so, by whom?: No Spiritual Healthcare Practices: no Christianity Healthcare Practices: no Cultural Healthcare Practices: no Are you DNR?: No Advance Directives: No ( is primary contact) Advance Directives Information Provided: Yes Advance Directives on File: No Poor oral hygiene: No Meds Allergies Allergy/AdvReac Type Severity Reaction Status Date / Time No Known Allergies Allergy Verified 12/15/24 08:52 Exam Airway Mallampati Class: III TM Dist: >3cm Neck ROM: Full Loose/Missing/Broken Teeth: No Heart: RRR Lungs: CTA Assessment and Plan Assessment Anesthesia Assessment: Anesthesia Plan Discussed Final Anesthetic Review NPO: Yes ASA Class: III Final Preanesthetic Review: Meds/Allgs Chart Reviewed, Consent Obtained/Reviewed and Anes Risks/Benef Reviewed Patient Risk: Intermediate Procedure Risk: Intermediate Anesthetic Plan Anesthetic Plan: GA Disposition: Standard PACU
[2024-12-15] VITALS (15 sets, daily range): BP systolic 124–158; BP diastolic 72–91; PULSE 76–96; RESP 13–18; TEMP 36.3–37.5; O2SAT 94–99; BMI 33.7
[2024-12-15] MEDS: Lactated Ringers 1,000 ML 100 ML IVCONT ×2 (08:29→15:06)
[2024-12-15] MEDS: Lactated Ringers 1,000 ML 999 ML IV (08:30)
[2024-12-15] MEDS: Aprepitant 32 MG/4.4 ML VIAL IVPUSH (08:57)
--- NOTE | 2024-12-15 10:09 | P.BOP_ITS ---
Brief Operative Note Date of Service: 12/15/24 Pre-op diagnosis: Severe obesity with comorbidities (see below) Post-op diagnosis: same Procedure: INITIAL PATIENT BMI ON PRESENTATION AT OUR OFFICE: 36.9 kg/m2 LAST BMI BEFORE SURGERY: 34.4 kg/m2 COMORBIDITIES: GERD, hyperlipidemia, anxiety, liver steatosis ?The patient presented to the Weight Management Program with significant obesity that was negatively impacting the patient's comorbidities as listed above.? The program is a phased program with a special focus on preoperative medical weight management to promote substantial weight loss and prepare the patients for the second phase of the program: bariatric surgery. The patient participated in an intensive weekly lifestyle ?intervention and exercise program during which the patient ?has lost between the initial office visit and the last preoperative visit 26.2lbs, or 9.12% of initial actual body weight. It was deemed appropriate for the patient to now have bariatric surgery. In light of the current Covid-19 pandemic and the well documented strong association of obesity and increased risk of worse outcomes if infected with Covid-19 (REFERENCES: https://pubmed.ncbi.nlm.nih.gov/54750041/ ,? ht tps://pubmed.ncbi.nlm.nih.gov/99731006/ ), any delay in undergoing bariatric surgery may lead to the patient's worsening health condition and increased?risk of more severe Covid-19 disease if infected. In addition a recent?study from [facility] published in [employer] on 05/06/2021 ([email or web address]) found that, among patients with obesity, substantial weight loss achieved with surgery was associated with improved outcomes of COVID-19 infection. The findings suggest that obesity can be a modifiable risk factor for the severity of COVID-19 infection. In addition, the patient met the BMI-criteria for bariatric surgery based on the BMI on initial presentation. The patient should not be penalized for achieving such weight loss because ?it is not sustainable long-term without surgical intervention and it was achieved in preparation for bariatric surgery ?under my direction and based on my published research ([email or web address]).[email or web address] and? https://www.soard.org/article/[email or web address](82)61201-X/pdf ) ?that a 10% preoperative weight loss improves long-term weight loss after surgery and reduces perioperative complications.? Insurance carriers such as [facility] have endorsed my recommendations ?and have included in their policies criteria to include a 10% preoperative weight loss requirement. PROCEDURE: Esophago-gastroscopy, laparoscopic lysis of adhesions, laparoscopic sleeve gastrectomy and laparoscopic gastropexy INDICATIONS: This is a 39 year-old male who was electively scheduled for laparoscopic, possibly open sleeve gastrectomy. The risks and complications of the procedure were discussed with the patient in advance, particularly the possibility of ; pulmonary embolism; staple line leak; bleeding; GERD; cardiac, pulmonary, or renal complications; as well as long-term problems such as insufficient weight loss, vitamin deficiency, strictures, or ulcers. The patient understood all the risks, and was in agreement to proceed with surgery. DESCRIPTION OF PROCEDURE: After informed consent was obtained from the patient, the patient was given preoperative antibiotics, and was transferred to the operating room. After successful induction of general anesthesia, pneumatic compression devices were placed on both lower extremities. An upper endoscopy was performed next. The oropharynx and esophagus appeared to be within normal limits. There was no diaphragmatic hernia present. The stomach was entered. Then after all fluid and air were suctioned and the stomach was fully decompressed, the scope was withdrawn and secured in the mid esophagus. The patient was then prepped and draped in the usual sterile manner, and abdomin al access was established at the right upper quadrant with the Shlomo technique. A 12 mm blunt port was inserted, and the abdomen was insufflated with CO2 to a pressure of 15 mmHg. Under direct visualization, additional ports were placed, specifically two 5 mm Versi-step ports to the left upper quadrant, and a 5 mm Versi-Step port to the right upper quadrant. 1% lidocaine plain was used to infiltrate all port sites as well as all fascia defects. Following that, the patient was placed in a steep reverse Trendelenburg position. An additional 5 mm port was placed to the right flank for the Mediflex retractor that was used to retract the left lobe of the liver. The gastro-esophageal fat pad was opened with the ultrasonic device (Threneeerbeat, Olympus) and the anterior esophagus and hiatus were exposed. The angle of His was opened with the ultrasonic device the fundus of the stomach from any diaphragmatic and splenic attachments. I then opened the gastrocolic ligament between the transverse colon and the greater curvature of the stomach with the ultrasonic device to enter the lesser sac and facilitate the ligation of the short gastric vessels. I started at a mid-point along the greater curvature and using the Thunderbeat, all short gastric vessels were divided all the way to the angle of His until the left traci was completely dissected at its entirety. I then divided the gastro-colic ligament distally to a distance of about 3-4 cm proximal to the pylorus. There were extensive congenital adhesions between the pancreas and posterior gastric wall. Those were lysed completely with the ultrasonic device. Adhesiolysis took approximately 45 min to complete. The stomach was then divided transversely with three Endo MARITZA-45 purple and three MARITZA-60 articulating purple loads using the CorduroIA stapler and loads. Every effort was made that the gastric sleeve had a tubular shape and an even caliber throughout. Once the sleeve resection was completed, the staple line of the gastric sleeve was reinforced with Hemoclips. The resected stomach was retrieved without difficulty from the Shlomo port. A gastropexy was then performed in order to prevent postoperative GERD and partial gastric volvulus. Several interrupted 2.0 Surgidac sutures were placed between the sleeve's staple line and the previously divided greater omentum and gastro-colic ligament using the Endo-Stitch device. ?An upper endoscopy was performed. There was no narrowing at the GE junction. The scope was easily advanced all the way to the pylorus which was clearly visualized. There was no narrowing anywhere and the sleeve's caliber was even throughout. The sleeve's staple line was inspected and there was no evidence of ischemia, bleeding or dehiscence. At that point the gastroscope was withdrawn from the patient?s mouth while we were decompressing the bowel and the stomach from any remaining air. I looked into the lesser sac to see how the sleeve was situating and it was situating well. There was no bleeding from the staple line, spleen, or short gastric vessels. The Mediflex retractor was removed, and the undersurface of the liver was inspected and there was no bleeding. The patient was placed in supine position. I closed the fascial defect of the 12 mm port site with a figure of eight #1 Polysorb suture. Then 30cc Ropivacaine plain with 10 mg of Dexamethasone were used to infiltrate the fascial closure as well as all skin incisions. At this point, the abdomen was deflated, all ports were removed under direct vision, and no bleeding was noted from any of the port sites. The skin incisions were irrigated with saline and were closed with 4-0 absorbable monofilament sutures. Steri-Strips and OpSites were used to cover all incisions. The patient was extubated and was transferred in stable condition to the recovery room for further care. I was present and performed all su parts of the procedure. Ms. Florian was the registered nurse first assistant. There were no residents to assist with this case. Zev Méndez MD, PhD, FACS Surgeon: Reed Méndez MD Anesthesia: GETA, local and other (TAP block) Was an Restaurant Associate used for this Procedure?: No Restaurant Associate: Stacie Florian Estimated blood loss (mL): 10 IV fluids (mL): 2,500 Urine output (mL): 0 (No Ball to record output) Pathology: other (1) Stomach) Condition: stable Disposition: PACU
--- NOTE | 2024-12-15 10:09 | MHC.SHP ---
Pre-Procedural Eval Section A - 24 Hr Update-Section A only Date of Service: 12/15/24 The patient is an INPATIENT: Yes The patient has been examined within 24 hours of the surgical procedure. The History & Physical has been completed within 30 days and I have reviewed it.: Yes Section B - Complete if H&P > 30 days Chief Complaint: Obesity Relevant Family History (Specify if Yes): No Relevant Social History: None Present Medications: None Medical History: No relevant PMH History of Previous Operations: No relevant previous surgery Allergies: Allergies Allergy/AdvReac Type Severity Reaction Status Date / Time No Known Allergies Allergy Verified 12/15/24 08:52 Review of Systems Sugical H&P ROS: Negative: Constitution, Cardiovascular, Respiratory, Neurological, Psychiatric, Hem-Onc, Allergic/Immunologic, Gastrointestinal, Genitourinary, Musculoskeletal, Integumentary, Endocrine and Eyes/Ears/Nose/Throat Exam Surgical H&P Exam: Normal: HEENT, Normal: Heart, Normal: Lungs, Normal: Extremities, Normal: Abdomen, Normal: Skin and Normal: Neurological Plan Diagnosis/Plan: Unchanged I have reviewed the history and physical and performed a pertinent physical examination on my patient. No changes have occurred unless specified. Time Spent With Patient Time: Total time managing care of this patient today ____ minutes.
--- NOTE | 2024-12-15 10:15 | P.PNGS_ITS ---
Subjective Subjective Date of Service: 12/16/24 Interval history: Feels well. Mild incisional pain. He is tolerating phase 1 bariatric diet Physical Exam 2 Vital Signs: Vital Signs: Last Vital Signs Temp 98.0 F 12/15/24 08:51 Pulse 76 12/15/24 08:51 Resp 18 12/15/24 08:51 BP 138/87 12/15/24 08:51 Pulse Ox 96 12/15/24 08:51 O2 Del Method Room Air 12/15/24 08:51 BMI result Body Mass Index 33.7 GI: Inspection: Yes normal to inspection, Yes incision (clean, dry and intact) and Yes obesity Palpation (GI): Soft to palpation Extrem: Right lower extremity: normal to inspection (no calf tenderness) L eft lower extremity: normal to inspection (no calf tenderness) Objective Data Active Medications Lactated Ringer's (Lr) 1,000 mls @ 100 mls/hr IVCONT .Q10H [facility] Stop: 12/15/24 12:14 Last Admin: 12/15/24 08:29 Dose: 100 mls/hr Documented By: ASHKAN Lactated Ringer's (Lr) 1,000 mls @ 999 mls/hr IV .Q1H1M [facility] Stop: 12/15/24 10:15 Last Admin: 12/15/24 08:30 Dose: 999 mls/hr Documented By: ASHKAN Labs 12/16/24 05:17 12/16/24 05:17 Procedures Date of Service Date of Service: 12/16/24 Progress Note: A&P Assessment and plan (1) Obesity: Status: Acute Assessment and Plan: s/p laparoscopic sleeve gastrectomy, lysis of adhesions and gastropexy Doing well Will check am labs and if OK the patient will be discharged home (2) BMI 34.0-34.9,adult: Status: Acute (3) Anxiety: Status: Acute (4) Hyperlipidemia: Status: Acute (5) GERD (gastroesophageal reflux disease): Status: Acute (6) Steatosis, liver: Status: Acute (7) S/P laparoscopic sleeve gastrectomy: Status: Acute (8) Congenital intra-abdominal adhesions: Status: Acute Time Spent With Patient Time: Total time managing care of this patient today ____ minutes. Quality Stroke Does the patient have a stroke diagnosis?: No VTE Prior VTE?: No VTE Risk Level:: Surgical - moderate VTE Device Contraindication: N/A - Device Ordered VTE Drug Contraindication: Treatment Not Indicated
--- NOTE | 2024-12-15 12:42 | PM.DS ---
DS: Providers Provider Date of Service: 12/16/24 Date of admission: 12/15/24 08:05 Date of discharge: 12/16/24 Primary care physician: Julissa Escobar MD DS: Diagnosis Discharge Diagnosis (1) Obesity: Status: Acute (2) Anxiety: Status: Acute (3) Hyperlipidemia: Status: Acute (4) GERD (gastroesophageal reflux disease): Status: Acute (5) Steatosis, liver: Status: Acute DS: Summary Hospital Course Hospital Course: ADMITTING DIAGNOSIS: obesity, liver steatosis, anxiety, HLD, GERD DISCHARGE DIAGNOSIS: same, s/p laparoscopic sleeve gastrectomy and gastropexy PAST SURGICAL HISTORY:?none PROCEDURE: upper endoscopy, laparoscopic sleeve gastrectomy and gastropexy DISCHARGE SUMMARY: History of Present Illness: The patient is a 39 year-old woman with a BMI of?33.7 kg/m2 and associated co-morbidities as described above. The patient had extensive work-up, lost?24.6 lbs preoperatively and was electively scheduled for laparoscopic, possible open sleeve gastrectomy and gastropexy. Risks and complications of the surgery were discussed with the patient in advance, particularly the possibility of , pulmonary embolism, anastomotic leak, bleeding, bowel injury, GERD, cardiac, renal or pulmonary complications. The patient understood all the risks and was in agreement with the surgical plan. Hospital Course: The patient underwent an uneventful laparoscopic sleeve gastrectomy with gastropexy on the day of admission. Postoperatively, the patient was transferred to the surgical floor. The patient received IV acetaminophen and IV Dilaudid for pain control. Patient was started on bariatric phase 1 diet POD #0. On postoperative day one, the patient was feeling well without nausea, vomiting, fevers, or tachycardia. The patient had some mild incisional pain and the abdomen was soft.? ? On the morning of postoperative day one, the patient was continued on 1 ounce of water or ice every half hour. During the day, the patient did fairly well, having some incisional pain, but able to ambulate adequately and to tolerate liquids well. Since the patient is doing well, we decided that the patient was ready to be discharged. The patient was given instructions to follow-up in office next week and to call the office for any fever over 101, persistent abdominal pain, nausea, vomiting, GERD, symptoms of DVT such as calf tenderness, or leg swelling, or pulmonary embolism such as chest pain or shortness of breath.? The patient was also instructed to drink 40-60 ounces of liquids per day using the 1-ounce cups. The patient had been given prescriptions for Tylenol for pain, Zofran prn for nausea, and pantoprazole and carafate previously. The patient was encouraged to ambulate and use the incentive spirometer. The patient was allowed to shower, but no baths, and encouraged to stay active at home. All of these instructions were given to the patient personally. All questions were answered and the patient understood all instructions, the instructions were also given to the patient in print. Time Attestation Discharge Coordination Time (in mins): 30 Quality: Safe Use of Opioids Does Pt have an Active Cancer Diagnosis on the Problem List?: No Quality: Stroke Does the patient have a stroke diagnosis?: No Physical Exam Vital Signs: Vital Signs: Last Vital Signs Temp 99.5 F 12/15/24 12:35 Pulse 91 12/15/24 12:35 Resp 18 12/15/24 12:35 BP 157/76 H 12/15/24 12:35 Pulse Ox 99 12/15/24 12:35 O2 Del Method Simple Mask 12/15/24 12:35 O2 Flow Rate 6 12/15/24 12:35 BMI result Body Mass Index 33.7 DS: Data Data Completed and Pending Pending studies at discharge: Pending at discharge 12/15/24 11:48 Surgical [PTH] Routine Discharge Plan Discharge Patient Disposition: Home, Self-Care Referrals: Julissa Cuevas MD [Primary Care Provider, Internal Medicine] - 1 Week Discharge Medications: Continued pantoprazole 40 mg tablet,delayed release (DR/EC) 40 mg PO DAILY@0630 sucralfate 100 mg/mL suspension 10 ml PO BID Qty: 600 2RF ondansetron 4 mg tablet,disintegrating 4 mg PO Q12H Qty: 20 0RF Rx Instructions: Only take one every 12 hours as needed if you have nausea Discontinued cholecalciferol (vitamin D3) 125 mcg (5,000 unit) capsule 125 mcg PO DAILY Qty: 90 0RF mecobalamin (vitamin B12) 1,000 mcg tablet,disintegrating 1,000 mcg sublingual DAILY Qty: 90 0RF Rx Instructions: place tablet under tongue and allow to dissolve for at least30 secs before swallowing thiamine HCl (vitamin B1) 100 mg tablet 100 mg PO DAILY Qty: 90 0RF Discharge Orders: Discharge Order (Routine); Ordered 12/16/24 Ordered By: Reed Méndez Activity on Discharge: No heavy lifting Stand Alone Forms: Patient Portal Discharge page Print Language: Macedonian Discharge Date/Time: 12/16/24 09:53
[2024-12-15 13:37] LABS: Hematocrit 42.6 % (42.0-52.0); Hemoglobin 15.2 g/dl (14.0-18.0)
[2024-12-15 13:49] LABS: Anion Gap 12 (12-20); Blood Urea Nitrogen 17 mg/dL (9-16); Calcium 8.8 mg/dL (8.4-10.2); Carbon Dioxide 25 mmol/L (22-29); Chloride 105 mmol/L (96-108); Creatinine Clr Calc Pharmacy 118.4; Estimated Glomerular Filt Rate > 60; Potassium 3.9 mmol/L (3.3-5.1); Sodium 138 mmol/L (135-145)
--- NOTE | 2024-12-15 14:39 | PHA.MEDREC ---
Addendum entered by Kym Morales RPh 12/15/24 14:55: MED REC REVIEWED BY [facility] Original Note: Pharmacy Consult ? Medication Reconciliation Pharmacy reviewed med rec done by nursing. Claims match.
[2024-12-15] MEDS: 0.9 % Sodium Chloride Flush 3 ML SYRINGE IVFLUSH (20:42)
[2024-12-16] MEDS: Lactated Ringers 1,000 ML 100 ML IVCONT (00:36)
[2024-12-16 03:39] VITALS: BP 141/87; PULSE 85; RESP 18; TEMP 36.4; O2SAT 95
[2024-12-16 05:46] LABS: MANUAL DIFF FLAG NO
[2024-12-16 05:54] LABS: Hematocrit 44.5 % (42.0-52.0); Hemoglobin 15.4 g/dl (14.0-18.0); Imm Gran Abs Auto 0.06 X10*3/uL (0.00-0.03); Imm Gran Pct Auto 0.5 % (0.0-0.4); Lymphocytes Absolute Auto 1.0 X10*3/uL (1.2-4.9); Mean Corpuscular HGB Conc 34.6 g/dl (31.0-36.0); Mean Corpuscular Hemoglobin 31.7 pg (27.0-33.0); Mean Corpuscular Volume 91.6 fL (80.0-98.0); NRBC Abs Auto 0.000 X10*3/uL (0.0-0.012); NRBC Pct Auto 0.0 /100WBC (0.0-0.2); Platelet Count 205 X10*3/uL (160-400); Red Blood Count 4.86 X10*6/uL (4.60-5.80); White Blood Count 12.9 X10*3/uL (4.8-10.8)
[2024-12-16 06:11] LABS: Anion Gap 13 (12-20); Blood Urea Nitrogen 13 mg/dL (9-16); Calcium 9.3 mg/dL (8.4-10.2); Carbon Dioxide 24 mmol/L (22-29); Chloride 106 mmol/L (96-108); Creatinine Clr Calc Pharmacy 143.1; Estimated Glomerular Filt Rate > 60; Potassium 4.0 mmol/L (3.3-5.1); Sodium 139 mmol/L (135-145)
[2024-12-16 08:00] VITALS: BP 134/81; PULSE 82; RESP 18; TEMP 36.4; O2SAT 96
--- NOTE | 2024-12-16 08:27 | HO.POSTANES ---
Post Anesthesia Evaluation Post Anesthesia Evaluation Date of Service: 12/16/24 Vital Signs: Vital Signs Temp Pulse Resp BP Pulse Ox O2 Del Method 12/16/24 08:00 97.5 F 82 18 134/81 96 12/16/24 03:39 97.5 F 85 18 141/87 H 95 Room Air 12/15/24 23:53 98.5 F 92 18 139/81 95 Room Air Anesthesia: General Endotracheal-GETA Mental Status: Awake Pain Control: Satisfactory Nausea/Vomiting: None Hydration: Adequate Anesthesia-Related Issues: No Anes. Related Issues
[2024-12-16 09:50] VITALS: BP 130/73; PULSE 97; RESP 14; TEMP 36.3; O2SAT 95
--- NOTE | 2024-12-16 09:54 | MHC.CM.PN ---
Patient dc'd home self care via private transport prior to CM assessment.
== END 2024-12-16 09:53 | disposition home or self-care (01) ==
LOC: HO.SSS 08:04 → HO.SSSA 12:41 → HO.S3 12-16 09:50
PROVIDERS: Physician Assistant Surgical; PCP Internal Medicine; Visit Provider Surgery
PROC: (CPT 43845; principal; 2024-12-15 10:20)
DX: E66.09 Other obesity due to excess calories (principal); Z68.36 Body mass index [BMI] 36.0-36.9, adult; Q43.3 Congenital malformations of intestinal fixation; K21.9 Gastro-esophageal reflux disease without esophagitis; R11.0 Nausea; E78.5 Hyperlipidemia, unspecified; K76.0 Fatty (change of) liver, not elsewhere classified; F41.9 Anxiety disorder, unspecified; Z79.899 Other long term (current) drug therapy
CPT/HCPCS: 43775; 43659; 49329; 36415; 80048; 80053; 80061; 83036; 83525; 84443; 85014; 85018; 85025; 85610; 85730; 86140; 86850; 86900; 86901; 88304; 88305; 88307; 88342; A4649; C9145; J0131; J0690; J1100; J1171; J1308; J2003; J2250; J2405; J2704; J2795; J3010; J7120

== ENCOUNTER → 2024-12-15 08:05 | Outpatient (BNV) | payer OTHER, SELFPAY | PROVIDERS: Admitting Provider Surgery; PCP Internal Medicine; Visit Provider Surgery | DX: E66.812 Obesity, class 2 (principal); E66.09 Other obesity due to excess calories; Z68.36 Body mass index [BMI] 36.0-36.9, adult; F41.9 Anxiety disorder, unspecified; E78.5 Hyperlipidemia, unspecified; K21.9 Gastro-esophageal reflux disease without esophagitis; K76.0 Fatty (change of) liver, not elsewhere classified | CPT/HCPCS: 43659; 43775; 99024 ==

== ENCOUNTER 2024-12-21 13:00 | Outpatient (AMB) | payer OTHER, SELFPAY ==
--- NOTE | 2024-12-21 12:40 | MHC.WMTHER ---
Intake Intake Visit Reasons: TV PO LSG 12/15/2024 Allergies No Known Allergies Allergy (Verified 12/15/24 08:52) PFSH Medical History DIPAK (obstructive sleep apnea) Anxiety Hyperlipidemia GERD (gastroesophageal reflux disease) BMI 36.0-36.9,adult Obesity Surgical History History of surgery History of esophagogastroduodenoscopy (EGD) Family History Mother No problems noted. Father No problems noted. Social History Household Members: Spouse Housing: House Are you a primary career development director to a significant other at home: No Do you presently have visiting nurse or other home services: No Alcohol intake: never Patient Tobacco Use Status: Never used Tobacco Behavioral Health Assessment Weight Management Therapy Therapy Notes Details Subjective: The patient underwent weight loss surgery on December 15, 2024, with a recorded weight of 261.2 lbs on the day of surgery. She reports no pain or complications during her recovery and states that she is tolerating the liquid diet well. The patient describes her mood as ?down,? as he has low energy which is normal as he had a surgery but denies symptoms consistent with clinical depression. She identifies her as her primary support, with additional support from her mother (long-distance) and a few friends. At this time, she denies experiencing hunger or any food-related thoughts. Objective: The patient completed a behavioral health post-op follow-up via phone. A guided emotional check-in was conducted to assess recovery, mood, and overall functioning. Psychoeducation was provided on common emotional adjustments after bariatric surgery, including the difference between hunger, cravings, and food thoughts. Strategies to support mindset, mindfulness, and adherence to physical and emotional needs were discussed. The importance of following the WMP team?s guidance?such as pacing fluids and sticking to the meal and exercise plan?was reinforced. Long-term success tips and program resources were shared, and the patient was encouraged to join the Facebook group for ongoing support and updates. Assessment/Response: Mental status: WNL Risk reported/identified: None Assessment & Plan Assessment & Plan (1) Adjustment disorder: Code(s): F43.20 - Adjustment disorder, unspecified (2) S/P laparoscopic sleeve gastrectomy: Code(s): Z98.84 - Bariatric surgery status Plan No safety concerns or issues were identified that would necessitate behavioral health monitoring. The patient declined further visits but is aware of the available behavioral health support if needed in the future. Telehealth Telehealth Telehealth Platform: [facility] Location of provider rendering services: practice address Location of patient: address on file Patient Identification confirmed using: Name, : Yes Telehealth method: voice only Patient verbally consented to treatment: Yes Patient verbally consented to billing insurance company: Yes Patient informed of any privacy concerns related to visit: Yes Minutes spent on Phone/Video with Pt.: 30 Coding Level of Care Code Established Pt Tele Psytx 30 mins (34249) Patient Type Established Diagnoses Adjustment disorder F43.20 S/P laparoscopic sleeve gastrectomy Z98.84 Time Spent (min) 30 Comment Start time: 12:30-End time: 1:00pm
--- OUTSIDE RECORDS SUMMARY | 2024-12-21 13:32 | XMS_ITS | Clinical Summary ---
Author Organization [facility] [address] [place] [address] [place] [phone] Phone Care Team Providers Care Fibreglass Lay Up Worker Name Role Phone Julissa Hi MD [...] care for your loved ones. For example, attendant child activity or elderly care for an older adult? [...] 7:30 AM EDT Office Visit Adult Medicine [address] [phone] Julissa Hi MD [address] [place] [phone] Health Maintenance Due Date Last Done Comments [...] 07/26/2024 11:13 AM [facility] Triglycerides 130 0 - 150 mg/dL LAB CHEMISTRY METHOD 07/26/2024 11:13 AM [facility] HDL 35(L) >=40 mg/dL LAB CHEMISTRY METHOD 07/26/2024 11:13 AM [facility] LDL Calculated 103(H) 0 - 100 mg/dL LAB CHEMISTRY METHOD 07/26/2024 11:13 AM [facility] VLDL Cholesterol Goran 26 mg/dL LAB CHEMISTRY METHOD 07/26/2024 11:13 AM [facility] Non HDL Chol. (LDL+VLDL) 129 <145 mg/dL LAB CHEMISTRY METHOD 07/26/2024 11:13 AM EDT [facility] Chol/HDL Ratio 4.7(H) 0.0 - 4.4 LAB CHEMISTRY METHOD 07/26/2024 11:13 AM EDT [facility] Blood Venous blood specimen / Unknown Venipuncture / Unknown 07/26/2024 8:22 AM EDT 07/26/2024 8:22 AM EDT us Julissa Hi MD LAB BLOOD ORDERABL ES Final Result [facility] ([email or web address] [address] [place] [address], from Last 3 Months or Most Recently Relevant to Health Maintenance Insurance [facility] PUBLIC PLANS Care Teams Fibreglass Lay Up Worker Relationship Specialty Start Date End Date Julissa Hi MD [address] [place] [id number] PCP - General 02/10/23
== END 2024-12-21 13:03 | disposition home or self-care (01) ==
LOC: HO.HBST 13:00
PROVIDERS: PCP Internal Medicine; Visit Provider Counselor Mental Health
DX: F43.20 Adjustment disorder, unspecified (principal); Z98.84 Bariatric surgery status
CPT/HCPCS: 90832

== ENCOUNTER 2024-12-23 09:52 | Outpatient (AMB) | payer OTHER, SELFPAY ==
--- NOTE | 2024-12-23 10:04 | A.OFFVIS_ITS ---
VS Expanded 12/23/24 10:05 BP 140/79 H Blood Pressure Location Rt brachial Blood Pressure Position Sitting Pulse 82 Pulse Source Pulse Oximeter Temp 96.9 F Temperature Source Temporal Artery Scan Pulse Oximetry 98 Oxygen Delivery Method Room Air Height 6 ft 2 in Weight 246 lb 9.6 oz BMI 31.7 Body Fat % 30.3 Body Fat Mass 74.8 Fat Free Mass 171.8 Visceral Fat Rating 13.0 Body Water % 47.9 Body Water Mass 118.2 Muscle Mass/Score 163.4 Basal Metabolic Rate/Score 2,346 Intake Visit Reasons: OV PO LSG 12/15/2024 Manager Personnel Selection Required: Yes Manager Personnel Selection Services: Manager Personnel Selection Present Manager Personnel Selection Name: hospital cmi Allergies No Known Allergies Allergy (Verified 12/23/24 10:05) Medication List - Last Reconciled 12/23/24 by WENDY Hernandez pantoprazole 40 mg PO DAILY@0630 sucralfate 10 mL PO BID HPI Comments Details: Patient is a pleasant 39-year-old male who returns to the office today in follow-up. He is 8 days post sleeve gastrectomy performed on 12/15/2024. Weight today is 246.6 lb with a BMI of 31.7. He previously was using Premier protein powder but switched to the ready to drink shake without discussing with Dr. Méndez. I explained to him explicitly that he needs to communicate with Dr. Méndez if he is having any problems or wants to change the meal plan at all. He is not to change the meal plan without direction. [facility] Medical History (Updated 12/17/24 @ 00:01 by Maru Galan) BMI 34.0-34.9,adult DIPAK (obstructive sleep apnea) Anxiety Hyperlipidemia GERD (gastroesophageal reflux disease) BMI 36.0-36.9,adult Obesity Surgical History (Updated 12/23/24 @ 10:05 by Anabel Rivers CMA) S/P gastric sleeve procedure History of surgery History of esophagogastroduodenoscopy (EGD) Family History Mother No problems noted. Father No problems noted. Social History Household Members: Spouse Housing: House Are you a primary child care center administrator to a significant other at home: No Do you presently have visiting nurse or other home services: No Alcohol intake: never Patient Tobacco Use Status: Never used Tobacco Physical Exam GI Inspection: Yes incision (Clean dry and intact) Assessment & Plan Assessment & Plan (1) S/P laparoscopic sleeve gastrectomy: Code(s): Z98.84 - Bariatric surgery status Category: Surgical Plan: POD 8 s/p LSG on 12/15/[address] Méndez Weight loss prior to surgery was 21 pounds or 7.3 % TBWL. Original weight on 09/19/2024 was 287.4 pounds and op weight was 266.4 pounds. Be sure to text Dr Méndez exactly 1 week after surgery your weight from your home scale so he can adjust your meal plan. Continue meal plan until f/u ilir Quinones in 2 weeks May shower, no submersion in bath for another week Continue abdominal binder with activity and exercise for the next 2 weeks. Exercise prior to surgery was elliptical and may resume No abdominal exercises for 6 weeks post operatively Will be emailed link to post op video for review Reminded of the pace of drinking, 2 mL per minute, 1 oz/15 min.
[2024-12-23 10:05] VITALS: BP 140/79; PULSE 82; TEMP 36.1; O2SAT 98; BMI 31.7
--- OUTSIDE RECORDS SUMMARY | 2024-12-23 10:07 | XMS_ITS | Clinical Summary ---
Author Organization [facility] [address] [place] [address] [place] [phone] Phone Care Team Providers Care Carport Erector Name Role Phone Julissa Hi MD Primary [...] care for your loved ones. For example, salesperson children's shoes or elderly care for an older adult? [...] 7:30 AM EDT Office Visit Adult Medicine [address] [phone] Julissa Hi MD [address] [place] [phone] Health Maintenance Due Date Last Done Comments [...] mg/dL LAB CHEMISTRY METHOD 07/26/2024 11:13 AM [facility] Triglycerides 130 0 - 150 mg/dL LAB CHEMISTRY METHOD 07/26/2024 11:13 AM [facility] HDL 35(L) >=40 mg/dL LAB CHEMISTRY METHOD 07/26/2024 11:13 AM [facility] LDL Calculated 103(H) 0 - 100 mg/dL LAB CHEMISTRY METHOD 07/26/2024 11:13 AM [facility] VLDL Cholesterol Goran 26 mg/dL LAB CHEMISTRY METHOD 07/26/2024 11:13 AM [facility] Non HDL Chol. (LDL+VLDL) 129 <145 mg/dL LAB CHEMISTRY METHOD 07/26/2024 11:13 AM EDT [facility] Chol/HDL Ratio 4.7(H) 0.0 - 4.4 LAB CHEMISTRY METHOD 07/26/2024 11:13 AM EDT [facility] Blood Venous blood specimen / Unknown Venipuncture / Unknown 07/26/2024 8:22 AM EDT 07/26/2024 8:22 AM EDT us Julissa Hi MD LAB BLOOD ORDERABL ES Final Result [facility]) [facility] [address] [place] [address], from Last 3 Months or Most Recently Relevant to Health Maintenance Insurance [facility] [employer] Care Teams Carport Erector Relationship Specialty Start Date End Date Julissa Hi MD [address] [place] [phone] PCP - General 02/10/23
== END 2024-12-23 10:36 | disposition home or self-care (01) ==
LOC: HO.HBS 09:52
PROVIDERS: PCP Internal Medicine; Visit Provider Physician Assistant Surgical
DX: Z98.84 Bariatric surgery status (principal)
CPT/HCPCS: 99024

== ENCOUNTER → 2024-12-23 09:52 | Outpatient (BNVA) | payer OTHER, SELFPAY | PROVIDERS: PCP Internal Medicine; Visit Provider Physician Assistant Surgical | DX: Z98.84 Bariatric surgery status (principal) | CPT/HCPCS: 99212 ==

== ENCOUNTER 2024-12-29 22:52 | Emergency (ER) | payer OTHER, SELFPAY ==
--- NOTE | ~2024-12-29 | CT_ITS ---
CLINICAL HISTORY: mid back pain renal colic CT abdomen and pelvis without contrast Comparison: US/DE/SR - US ABDOMEN COMPLETE WITH LIVER ELASTOGRAPHY - 11/25/24 11:14 EDT Findings: CT abdomen: Lung bases are clear. No acute bony abnormality. No renal or ureteral calculi identified. No hydronephrosis or perinephric stranding. Unenhanced liver, spleen, pancreas, and adrenal glands are unremarkable. No calcified gallstones or gallbladder wall thickening. Air-filled distention of the distal esophagus. Postsurgical change of the stomach. No dilated small bowel. No free fluid or free air. CT pelvis: Appendix is normal. No colonic wall thickening or pericolonic inflammatory stranding. No bladder calculi. No bladder wall thickening. IMPRESSION: No acute imaging explanation for the patient's symptoms. Specifically, no renal or ureteral calculi. This document has been electronically signed by: Gera Lopez MD on 12/30/2024 01:31:28
[2024-12-29 22:56] VITALS: BP 151/90; PULSE 85; RESP 20; TEMP 36.7; O2SAT 98; BMI 31.5
[2024-12-29 23:10] VITALS: BP 151/90; PULSE 85; RESP 20; TEMP 36.7; O2SAT 98
[2024-12-29 23:19] LABS: Hematocrit 42.9 % (42.0-52.0); Hemoglobin 15.4 g/dl (14.0-18.0); Imm Gran Abs Auto 0.04 X10*3/uL (0.00-0.03); Imm Gran Pct Auto 0.3 % (0.0-0.4); Lymphocytes Absolute Auto 1.4 X10*3/uL (1.2-4.9); MANUAL DIFF FLAG NO; Mean Corpuscular HGB Conc 35.9 g/dl (31.0-36.0); Mean Corpuscular Hemoglobin 32.1 pg (27.0-33.0); Mean Corpuscular Volume 89.4 fL (80.0-98.0); NRBC Abs Auto 0.000 X10*3/uL (0.0-0.012); NRBC Pct Auto 0.0 /100WBC (0.0-0.2); Platelet Count 248 X10*3/uL (160-400); Red Blood Count 4.80 X10*6/uL (4.60-5.80); White Blood Count 13.7 X10*3/uL (4.8-10.8)
[2024-12-29 23:27] LABS: Appearance Urine Clear; Glucose Urine UA Negative (Negative); PH 6.5 (5.0-9.0); Specific Gravity - Urine 1.025 (1.005-1.025); UMIC TRIGGER UACC YES
[2024-12-29 23:33] LABS: Alanine Aminotransferase 49 U/L (0-40); Albumin Level 4.6 g/dL (3.5-5.0); Alkaline Phosphatase 81 U/L (39-117); Anion Gap 15 (12-20); Aspartate Amino Transferase 35 U/L (5-37); Blood Urea Nitrogen 14 mg/dL (9-16); Calcium 9.5 mg/dL (8.4-10.2); Carbon Dioxide 27 mmol/L (22-29); Chloride 105 mmol/L (96-108); Creatinine Clr Calc Pharmacy 115.5; Estimated Glomerular Filt Rate > 60; Potassium 3.7 mmol/L (3.3-5.1); Sodium 143 mmol/L (135-145); Total Protein 7.7 g/dL (6.5-8.0)
[2024-12-30] VITALS: RESP 18
[2024-12-30] MEDS: Lactated Ringers 1,000 ML 999 ML IV
[2024-12-30 00:02] LABS: Lipase 23 U/L (8-78)
--- NOTE | 2024-12-30 00:32 | ED.GENADULT ---
HPI - General Adult General Chief complaint: Back Pain/Injury Stated complaint: back pain, n+v postop 2wks Time Seen by Provider: 12/30/24 00:14 Source: patient and family Limitations: language barrier History of Present Illness ED Provider: Patria Ball PA-C HPI narrative: 39-year-old male with a history of morbid obesity, GERD, hyperlipidemia, anxiety who was now status post laparoscopic sleeve gastrectomy December [address] Bashir presents with mid back pain since earlier today. Pain primarily right-sided is nonradiating. Pain worse with movement. Associated nausea vomiting. Denies dysuria, hematuria, history of kidney stones. No fevers. No diarrhea. No abdominal pain. Related Data Home Medications ?Medication ?Instructions ?Recorded ?Confirmed pantoprazole 40 mg tablet,delayed 40 mg PO DAILY@0630 12/15/24 12/23/24 release Previous Rx's ?Medication ?Instructions ?Recorded sucralfate 100 mg/mL oral 10 ml PO BID #600 mL 11/28/24 suspension ketorolac 10 mg tablet 10 mg PO Q6H PRN pain #20 tabs 12/30/24 Allergies Allergy/AdvReac Type Severity Reaction Status Date / Time No Known Allergies Allergy Verified 12/29/24 22:59 Review of Systems Review of Systems: Yes all other systems are reviewed and are negative Constitutional: Constitutional: Denies fatigue and Denies fever(s) Cardiovascular: Cardiovascular: Denies chest pain and Denies dyspnea Respiratory: Respiratory: Denies cough and Denies dyspnea Gastrointestinal: Gastrointestinal: Denies abdominal pain, Denies constipation, Denies diarrhea, Reports nausea and Reports vomiting Genitourinary: Genitourinary: Denies hematuria, Denies dysuria and Reports flank pain Musculoskeletal: Musculoskeletal: Reports back pain Endocrine: Endocrine: Denies fatigue [facility] Past Medical History Attestation statement: The following information was validated with the patient. Medical History (Updated 12/30/24 @ 01:47 by WENDY Jack) BMI 34.0-34.9,adult DIPAK (obstructive sleep apnea) Anxiety Hyperlipidemia GERD (gastroesophageal reflux disease) BMI 36.0-36.9,adult Obesity Surgical History (Updated 12/24/24 @ 00:02 by Maru Galan) S/P gastric sleeve procedure History of surgery History of esophagogastroduodenoscopy (EGD) Family History Family History Mother No problems noted. Father No problems noted. Social History Social History Household Members: Spouse Housing: House Are you a primary customer care associate to a significant other at home: No Do you presently have visiting nurse or other home services: No Alcohol intake: never Patient Tobacco Use Status: Never used Tobacco Physical Exam ED Vital Signs: Vital Signs - 24 hr 12/29/24 22:56 12/29/24 23:10 12/30/24 00:00 Temperature 98.1 F 98.1 F Pulse Rate 85 85 Respiratory Rate 20 20 18 Blood Pressure 151/90 H 151/90 H Pulse Oximetry 98 98 Oxygen Delivery Method Room Air Room Air 12/30/24 01:05 12/30/24 02:05 Temperature 98.0 F 98.0 F Pulse Rate 68 68 Respiratory Rate 16 16 Blood Pressure 145/88 H 145/88 H Pulse Oximetry 98 98 Oxygen Delivery Method Room Air Room Air BMI result Body Mass Index 31.5 Const Other: Alert, well-appearing Orientation/consciousness: patient oriented x3 Resp Effort & Inspection: normal respiratory effort Cardio Other: Normal peripheral perfusion GI Other: Soft, nontender nondistended no guarding General: Yes no CVA tenderness Back/Spine/Pelvis Back: no CVA tenderness Skin Other: Warm dry no rash Neuro General: patient oriented x3, gait normal, no focal motor deficits and CN's II-XI intact bilaterally Psych Other: Cooperative Medications Administered Discontinued Medications Generic Name Dose Route Start Last Admin Trade Name Jolanta PRN Reason Stop Dose Admin Lactated Ringer's 1,000 mls @ 999 mls/hr 12/29/24 23:50 12/30/24 01:19 Lr IV 12/30/24 00:50 Infused .Q1H1M ONE Infusion Sodium Chloride 1,000 mls @ 999 mls/hr 12/30/24 00:45 12/30/24 01:13 Ns IV 12/30/24 01:45 Not Given .Q1H1M ISIDRA Ketorolac Tromethamine 15 mg 12/30/24 00:43 12/30/24 01:01 Ketorolac Tromethamine 15 Mg/Ml Vial IVPUSH 12/30/24 00:44 15 mg ONCE ONE Administration Morphine Sulfate 4 mg 12/29/24 23:50 12/30/24 00:00 Morphine Sulfate 4 Mg/Ml Cartridge IVPUSH 12/29/24 23:51 4 mg ONCE ONE Administration Protocol Ondansetron HCl 4 mg 12/29/24 23:50 12/30/24 00:00 Ondansetron Hcl 4 Mg/2 Ml Vial IVPUSH 12/29/24 23:51 4 mg ONCE ONE Administration Ondansetron HCl 4 mg 12/30/24 00:43 12/30/24 01:13 Ondansetron Hcl 4 Mg/2 Ml Vial IVPUSH 12/30/24 00:44 Not Given ONCE ONE Medical Decision Making Medical Decision Making MDM Narrative: 39-year-old male with a history of morbid obesity, GERD, hyperlipidemia, anxiety who was now status post laparoscopic sleeve gastrectomy December [address] Bashir presents with mid back pain since earlier today. Pain primarily right-sided is nonradiating. Pain worse with movement. Associated nausea vomiting. Denies dysuria, hematuria, history of kidney stones. No fevers. No diarrhea. No abdominal pain. Problem: Recent surgery History: Per patient I have considered the following differential diagnoses: Thoracic strain, renal colic, pyelonephritis, postoperative complication Plan: Technically, the patient does not have abdominal pain, he is having thoracic pain, primarily in the right side. I am considering renal colic, his screening labs returned including a urinalysis he is passing a small amount of hematuria. He has no CVA tenderness to suggest pyelonephritis. We will obtain a CT scan. He has received fluid morphine and Zofran, I have added on Toradol. I have independently reviewed the following tests: Labs: Leukocytosis with left shift, not anemic, no electrolyte abnormalities, LFTs within normal limit, passing a small amount of hematuria, urine not infected CT abdomen and pelvis:CT abdomen: Lung bases are clear. No acute bony abnormality. No renal or ureteral calculi identified. No hydronephrosis or perinephric stranding. Unenhanced liver, spleen, pancreas, and adrenal glands are unremarkable. No calcified gallstones or gallbladder wall thickening. Air-filled distention of the distal esophagus. Postsurgical change of the stomach. No dilated small bowel. No free fluid or free air. CT pelvis: Appendix is normal. No colonic wall thickening or pericolonic inflammatory stranding. No bladder calculi. No bladder wall thickening. IMPRESSION: No acute imaging explanation for the patient's symptoms. Specifically, no renal or ureteral calculi. Lab Data 12/29/24 23:12 12/29/24 23:12 Labs: Lab Results 12/29/24 12/29/24 Range/Units 23:09 23:12 WBC 13.7 H (4.8-10.8) X10*3/uL RBC 4.80 (4.60-5.80) X10*6/uL Hgb 15.4 (14.0-18.0) g/dl Hct 42.9 (42.0-52.0) % MCV 89.4 (80.0-98.0) fL MCH 32.1 (27.0-33.0) pg MCHC 35.9 (31.0-36.0) g/dl RDW 12.1 (11.0-16.0) % Plt Count 248 (160-400) X10*3/uL MPV 10.4 (9.4-12.4) fL Immature Gran % (Auto) 0.3 (0.0-0.4) % Neut % (Auto) 84.0 H (45-73) % Lymph % (Auto) 10.0 L (20-40) % [place] % (Auto) 5.3 (2-11) % Eos % (Auto) 0.1 (0-4) % Baso % (Auto) 0.3 (0-2) % Lymph # (Auto) 1.4 (1.2-4.9) X10*3/uL [place] # (Auto) 0.7 (0.1-1.2) X10*3/uL Eos # (Auto) 0.0 (0.0-0.4) X10*3/uL Baso # (Auto) 0.0 (0.0-0.2) X10*3/uL Abs Immat Gran (auto) 0.04 H (0.00-0.03) X10*3/uL Absolute Neuts (auto) 11.5 H (2.0-8.3) x10*3/uL Absolute Nucleated RBC 0.000 (0.0-0.012) X10*3/uL Nucleated RBC % (auto) 0.0 (0.0-0.2) /100WBC Sodium 143 (135-145) mmol/L Potassium 3.7 (3.3-5.1) mmol/L Chloride 105 (96-108) mmol/L Carbon Dioxide 27 (22-29) mmol/L Anion Gap 15 (12-20) BUN 14 (9-16) mg/dL Creatinine 1.15 (0.5-1.4) mg/dL Estim Creat Clear Calc 115.5 Estimated GFR > 60 Random Glucose 144 H (60-115) mg/dL Calcium 9.5 (8.4-10.2) mg/dL Total Bilirubin 0.8 (0.0-1.0) mg/dL AST 35 (5-37) U/L ALT 49 H (0-40) U/L Alkaline Phosphatase 81 (39-117) U/L Total Protein 7.7 (6.5-8.0) g/dL Albumin 4.6 (3.5-5.0) g/dL Lipase 23 (8-78) U/L Urine Color Yellow Urine Appearance Clear Urine pH 6.5 (5.0-9.0) Ur Specific [place] 1.025 (1.005-1.025) Urine Protein Trace (Neg-Trace) mg/dL Urine Glucose (UA) Negative (Negative) mg/dL Urine Ketones 80 (Negative) mg/dL Urine Blood Trace H (Negative) Urine Nitrite Negative (Negative) Ur Leukocyte Esterase Negative (Negative) Urine RBC 3-5 H (0-2) /HPF Urine WBC 0-5 (0-5) /HPF Ur Squamous Epith Cells 0-2 (0-2) /HPF Urine Bacteria None Seen (None Seen) Hyaline Casts 3-5 (0-2) /LPF Discharge Plan Discharge Clinical Impression: Thoracic back pain Patient Disposition: Home, Self-Care Instructions: Thoracic Pain (ED) Additional Instructions: All of your screening labs were overall normal, you were passing a trace amount of blood in your urine, however the urine is not infected. The CT scan was completely negative, you do not have an acute intra-abdominal process. See home care instructions for your mid back pain. Use the ketorolac as needed, this is an anti-inflammatory, you had this same medication in the emergency room. Continue to follow up with your primary care provider as needed. Prescriptions: New ketorolac 10 mg tablet 10 mg PO Q6H PRN (Reason: pain) Qty: 20 0RF Rx Instructions: maximum total duration of 5 days from all oral, intranasal, or parenteral formulations. The patient received an IV dose of Toradol here in the emergency room No Action pantoprazole 40 mg tablet,delayed release (DR/EC) 40 mg PO DAILY@0630 sucralfate 100 mg/mL suspension 10 ml PO BID Qty: 600 2RF Interventions: ED Discharge Assessment Last Done: 12/30/24 02:05 Discharge Date/Time: 12/30/24 02:05 Print Language: Slovenian
[2024-12-30 01:05] VITALS: BP 145/88; PULSE 68; RESP 16; TEMP 36.7; O2SAT 98
[2024-12-30 02:05] VITALS: BP 145/88; PULSE 68; RESP 16; TEMP 36.7; O2SAT 98
== END 2024-12-30 02:05 | disposition home or self-care (01) ==
PROVIDERS: Emergency Medicine; Emergency Provider Emergency Medicine; PCP Internal Medicine
DX: M54.6 Pain in thoracic spine (principal); M54.50 Low back pain, unspecified; R11.2 Nausea with vomiting, unspecified; R10.2 Pelvic and perineal pain; Z98.84 Bariatric surgery status; Z79.899 Other long term (current) drug therapy
CPT/HCPCS: 36415; 74176; 80053; 81001; 83690; 85025; 96361; 96374; 96375; 99284; J1885; J2270; J2405; J7120

== ENCOUNTER → 2024-12-30 00:43 | Outpatient (BNV) | payer OTHER, SELFPAY | PROVIDERS: Emergency Provider Emergency Medicine; PCP Internal Medicine; Visit Provider Radiology Diagnostic Radiology | DX: R07.81 Pleurodynia (principal); N23 Unspecified renal colic; M54.6 Pain in thoracic spine | CPT/HCPCS: 71046; 71275; 74176 ==

== ENCOUNTER 2024-12-30 09:34 | Emergency (ER) | payer OTHER, SELFPAY ==
--- NOTE | ~2024-12-30 | CT_ITS ---
EXAMINATION: CT ANGIOGRAM CHEST CLINICAL INFORMATION: Right pleuritic chest pain COMPARISON: None available. TECHNIQUE: Multiple axial images were obtained through the chest after the administration of 65 mL of Omnipaque 350 intravenous contrast. Extensive vascular post-processing including two-dimensional and three-dimensional reformatted images were created and reviewed on an independent workstation. This CT examination was performed using dose optimization techniques as appropriate, variously including the following: *Automated exposure control *Adjustment of mA and/or kV according to patient size (this includes techniques or standardized protocols for targeted exams where dose is matched to indication/reason for exam; i.e. extremities or head) *Use of iterative reconstruction technique DLP: 381 mGY*cm FINDINGS: QUALITY OF STUDY/CONTRAST BOLUS: Adequate but with beam hardening streak artifact through lingular branches. PULMONARY ARTERIES: No central or segmental pulmonary artery filling defects are identified. THORACIC AORTA: No aneurysm or vascular calcifications are present. LUNGS AND PLEURA: Patchy groundglass and airspace opacities are present in the lung bases, left lower lobe greater than right lower lobe. MEDIASTINUM: Unremarkable CORONARY ARTERY CALCIFICATION: Absent CHEST WALL/AXILLA: No axillary or internal mammary lymphadenopathy. UPPER ABDOMEN: Surgical clips are present. The fundus and body of the stomach along the greater curvature BONES: Unremarkable aside from a few small Schmorl's nodes in the mid to lower thoracic spine. CT/CT angio chest PE protocol IMPRESSION: Suspected left lower lobe pneumonia. Right basilar atelectasis versus early pneumonia. No evidence of pulmonary embolus. Lingular segmental artery images are degraded by beam hardening artifact. Fleischner guidelines were followed. Electronically signed by: oRwdy Yadav MD 12/30/2024 01:38 PM EDT
--- NOTE | ~2024-12-30 | XR_ITS ---
EXAMINATION: XR CHEST CLINICAL INFORMATION: Right-sided pleuritic pain COMPARISON: October 06, 2024 TECHNIQUE: 2 views of the chest were obtained. FINDINGS: There are low lung volumes. There is minimal linear atelectasis in the right lung base. There is a vague patchy opacity in the medial left lung base. Heart size is normal. Posterior costophrenic angles are mildly blunted. XR/XR chest 2V IMPRESSION: Left lower lobe pneumonia versus atelectasis. Trace pleural effusions. Electronically signed by: Rowdy Yadav MD 12/30/2024 11:15 AM EDT
[2024-12-30 09:52] VITALS: BP 127/60; PULSE 99; RESP 19; TEMP 37.5; O2SAT 98; BMI 31.5
--- OUTSIDE RECORDS SUMMARY | 2024-12-30 10:12 | XMS_ITS | Clinical Summary ---
Author Organization [facility] [address] [place] [address] [place] [phone] Phone Care Team Providers Care Fruit Grader Operator Name Role Phone Julissa Hi MD [...] your loved ones. For example, child care provider or elderly care for an older adult? [...] 7:30 AM EDT Office Visit Adult Medicine [address] [phone] Julissa Hi MD [address] [place] [phone] Health Maintenance Due Date Last Done Comments [...] 07/26/2024 11:13 AM [facility] Triglycerides 130 0 - 150 mg/dL LAB CHEMISTRY METHOD 07/26/2024 11:13 AM [facility] HDL 35(L) >=40 mg/dL LAB CHEMISTRY METHOD 07/26/2024 11:13 AM [facility] LDL Calculated 103(H) 0 - 100 mg/dL LAB CHEMISTRY METHOD 07/26/2024 11:13 AM [facility] VLDL Cholesterol Goran 26 mg/dL LAB CHEMISTRY METHOD 07/26/2024 11:13 AM [facility] Non HDL Chol. (LDL+VLDL) 129 <145 mg/dL LAB CHEMISTRY METHOD 07/26/2024 11:13 AM EDT [facility] Chol/HDL Ratio 4.7(H) 0.0 - 4.4 LAB CHEMISTRY METHOD 07/26/2024 11:13 AM EDT [facility] Blood Venous blood specimen / Unknown Venipuncture / Unknown 07/26/2024 8:22 AM EDT 07/26/2024 8:22 AM EDT us Julissa Hi MD LAB BLOOD ORDERABL ES Final Result [facility] ([facility]) [facility] [address] [place] [address], from Last 3 Months or Most Recently Relevant to Health Maintenance Insurance [facility] [employer] Care Teams Fruit Grader Operator Relationship Specialty Start Date End Date Julissa Hi MD [address] [place] [id number] PCP - General 02/10/23
--- NOTE | 2024-12-30 10:28 | ED.GENADULT ---
HPI - General Adult General Chief complaint: Abdominal Pain Stated complaint: Blood in Urine Low Quadrant Pain Time Seen by Provider: 12/30/24 10:28 History of Present Illness ED Provider: Claudia LUEVANO narrative: The patient is a 39-year-old male. The patient had bariatric surgery 2 weeks ago. He had a laparoscopic sleeve gastrectomy and a laparoscopic gastropexy. He also had laparoscopic lysis of adhesions and esophag0-gastroscopy. The patient came to the emergency room yesterday evening complaining of mid back pain that was associated with nausea and vomiting. The pain was mostly on the right side according to nursing notes and the providers note from last night.. He was seen in the emergency room after presenting here at around 23:00 last night. He had a noncontrast CT of the abdomen and pelvis to look for a possible kidney stone. This was negative. He was discharged. The patient tells me that the pain he had last night was more in the left side and that sometime early this morning, after discharge, he developed a pain in his right anterior lower chest that is worse when he takes a deep breath. He has also noticed that his temperature was 99.5 degrees. He has not had any significant coughing. He does not feel significantly short of breath. Related Data Home Medications ?Medication ?Instructions ?Recorded ?Confirmed pantoprazole 40 mg tablet,delayed 40 mg PO DAILY@0630 12/15/24 12/23/24 release Previous Rx's ?Medication ?Instructions ?Recorded sucralfate 100 mg/mL oral 10 ml PO BID #600 mL 11/28/24 suspension amoxicillin 875 mg-potassium 1 tab PO BID #16 tabs 12/30/24 clavulanate 125 mg tablet doxycycline monohydrate 100 mg 100 mg PO BID #16 caps 12/30/24 capsule ketorolac 10 mg tablet 10 mg PO Q6H PRN pain #20 tabs 12/30/24 oxycodone 5 mg tablet 5 mg PO Q6H PRN pain #14 tabs 12/30/24 Allergies Allergy/AdvReac Type Severity Reaction Status Date / Time No Known Allergies Allergy Verified 12/30/24 09:54 Review of Systems Review of Systems: Yes all other systems are reviewed and are negative [facility] Past Medical History Medical History (Updated 12/31/24 @ 00:00 by Background Daemon) BMI 34.0-34.9,adult DIPAK (obstructive sleep apnea) Anxiety Hyperlipidemia GERD (gastroesophageal reflux disease) BMI 36.0-36.9,adult Obesity Surgical History (Updated 12/24/24 @ 00:02 by Maru Galan) S/P gastric sleeve procedure History of surgery History of esophagogastroduodenoscopy (EGD) Family History Family History Mother No problems noted. Father No problems noted. Social History Social History Household Members: Spouse Housing: House Are you a primary direct care professional to a significant other at home: No Do you presently have visiting nurse or other home services: No Alcohol intake: never Patient Tobacco Use Status: Never used Tobacco Smoked in Last 30 Days: No Advance Directives: No Advance Directives Information Provided: Yes Do you have a plan to hurt others: No Plan Physical Exam ED Vital Signs: Vital Signs - 24 hr 12/30/24 09:52 12/30/24 11:56 12/30/24 14:26 Temperature 99.5 F 99.6 F 99.7 F Pulse Rate 99 87 80 Respiratory Rate 19 18 17 Blood Pressure 127/60 111/81 142/88 H Pulse Oximetry 98 97 95 Oxygen Delivery Method Room Air Room Air Room Air 12/30/24 16:09 Temperature 99.0 F Pulse Rate 85 Respiratory Rate 18 Blood Pressure 112/62 Pulse Oximetry 94 Oxygen Delivery Method Room Air BMI result Body Mass Index 31.5 Const Other: The patient is a 39-year-old male who was awake and alert. Apparently the patient had looked quite uncomfortable prior to my evaluation. I saw him after he received a dose of morphine. At that point he looked comfortable. Orientation/consciousness: patient oriented x3 HENMT Other: Face is symmetrical, mucous membranes moist Eyes Other: Pupils are round equal, conjunctivae are clear, extraocular movements intact General: appearance normal, both eyes and all related structures Neck Neck: Yes normal visual inspection and Yes full ROM Resp Other: No obvious increased work of breathing. Lungs seemed fairly clear bilaterally. Cardio Rate: regular rate Rhythm: regular rhythm Heart sounds: S1 normal heart sound present and S2 normal heart sound present GI Other: The abdomen is soft and nontender Skin Other: The skin is dry and unremarkable Neuro General: patient oriented x3, tone normal, moves all extremities, no focal motor deficits and CN's II-XI intact bilaterally Extrem Other: There is no calf swelling or tenderness. No asymmetry. No peripheral edema. Medications Administered Discontinued Medications Generic Name Dose Route Start Last Admin Trade Name Jolanta PRN Reason Stop Dose Admin Ceftriaxone Sodium 2 gm 12/30/24 14:06 12/30/24 14:13 Ceftriaxone Sodium 2 Gm Vial IVPUSH 12/30/24 14:07 2 gm ONCE ONE Administration Hydromorphone HCl 1 mg 12/30/24 12:07 12/30/24 12:18 Hydromorphone Hcl 1 Mg/Ml Syringe IVPUSH 12/30/24 12:08 1 mg ONCE ONE Administration Protocol Doxycycline Hyclate 100 mg/ 250 mls @ 166.67 mls/hr 12/30/24 14:06 12/30/24 14:13 Sodium Chloride IV 12/30/24 15:35 166.67 mls/hr ONCE ONE Administration Sodium Chloride 1,000 mls @ 999 mls/hr 12/30/24 14:45 12/30/24 15:48 Ns IV 12/30/24 15:45 999 mls/hr .Q1H1M ISIDRA Administration Iohexol 100 ml 12/30/24 13:15 12/30/24 13:16 Iohexol 350 Mg/Ml 100 Ml Infus..Btl IV 12/30/24 13:16 65 ml ONCE ONE Administration Ketorolac Tromethamine 15 mg 12/30/24 14:35 12/30/24 15:03 Ketorolac Tromethamine 15 Mg/Ml Vial IVPUSH 12/30/24 14:36 15 mg ONCE ONE Administration Morphine Sulfate 4 mg 12/30/24 10:24 12/30/24 10:39 Morphine Sulfate 4 Mg/Ml Cartridge IVPUSH 12/30/24 10:25 4 mg ONCE ONE Administration Protocol Ondansetron HCl 4 mg 12/30/24 10:24 12/30/24 10:39 Ondansetron Hcl 4 Mg/2 Ml Vial IVPUSH 12/30/24 10:25 4 mg ONCE ONE Administration Oxycodone HCl 5 mg 12/30/24 14:35 12/30/24 15:02 Oxycodone Hcl Immed Release 5 Mg Tablet PO 12/30/24 14:36 5 mg ONCE ONE Administration Medical Decision Making Medical Decision Making [facility] Narrative: The patient is a 39-year-old male who had a recent gastric sleeve bariatric surgery. He presented last night with back pain thought to possibly represent ureteral colic. He had a negative CT of the abdomen and pelvis without contrast. He was treated and released several hours ago. He returns with pain that he indicates his more in the right anterior lower chest and which is distinctly pleuritic. This is not been associated with a significant degree of coughing although he does feel mildly short of breath. Clinically my concern based on his description of the symptoms and his recent surgery was that he might have pulmonary embolism. The chest x-ray was read as possibly suggesting a pneumonia. A CT pulmonary angiogram was done which does not indicate any definite pulmonary emboli but which does show bilateral airspace disease in the lower lobes. The patient has a white count today of 18.8. His white count last night was 13.7. The CT of the abdomen and pelvis without contrast that was done yesterday evening included a fair amount of lung tissue in the upper cuts of the CAT scan. Comparing today's CT of the chest with the visualized portions of the lower lungs on last night CAT scan there is a distinct change with development of significant airspace disease bilaterally. This change in the appearance of the CAT scans, while somewhat surprising, certainly seems to be consistent with a new diagnosis of pneumonia. This is somewhat unusual since the patient is not having significant coughing. In any event given the CT findings of pneumonia, the elevated white count, and the pleuritic discomfort I think it would be reasonable to treat this patient for pneumonia. He was given IV ceftriaxone and IV doxycycline and IV fluids. He was observed for several hours. He was treated with a oxycodone for his pain. His was at the bedside and had multiple questions. I did my best to answer these questions. Ultimately I do not feel there was an indication for hospitalization. He was hemodynamically stable and was maintaining good oxygenation. He will be discharged with a prescriptions for Augmentin and doxycycline as antibiotics for his pneumonia. He will also be given a prescription for oxycodone for his pain. Lab Data 12/30/24 10:30 12/30/24 10:30 Labs: Lab Results 12/30/24 12/30/24 Range/Units 10:30 12:35 WBC 18.8 H (4.8-10.8) X10*3/uL RBC 4.97 (4.60-5.80) X10*6/uL Hgb 15.8 (14.0-18.0) g/dl Hct 44.4 (42.0-52.0) % MCV 89.3 (80.0-98.0) fL MCH 31.8 (27.0-33.0) pg MCHC 35.6 (31.0-36.0) g/dl RDW 12.2 (11.0-16.0) % Plt Count 257 (160-400) X10*3/uL MPV 10.4 (9.4-12.4) fL Immature Gran % (Auto) 0.4 (0.0-0.4) % Neut % (Auto) 86.8 H (45-73) % Lymph % (Auto) 5.5 L (20-40) % [place] % (Auto) 7.1 (2-11) % Eos % (Auto) 0.0 (0-4) % Baso % (Auto) 0.2 (0-2) % Lymph # (Auto) 1.0 L (1.2-4.9) X10*3/uL [place] # (Auto) 1.3 H (0.1-1.2) X10*3/uL Eos # (Auto) 0.0 (0.0-0.4) X10*3/uL Baso # (Auto) 0.0 (0.0-0.2) X10*3/uL Abs Immat Gran (auto) 0.08 H (0.00-0.03) X10*3/uL Absolute Neuts (auto) 16.3 H (2.0-8.3) x10*3/uL Absolute Nucleated RBC 0.000 (0.0-0.012) X10*3/uL Nucleated RBC % (auto) 0.0 (0.0-0.2) /100WBC Sodium 138 (135-145) mmol/L Potassium 3.7 (3.3-5.1) mmol/L Chloride 103 (96-108) mmol/L Carbon Dioxide 25 (22-29) mmol/L Anion Gap 14 (12-20) BUN 9 (9-16) mg/dL Creatinine 1.00 (0.5-1.4) mg/dL Estim Creat Clear Calc 132.8 Estimated GFR > 60 Random Glucose 130 H (60-115) mg/dL Lactic Acid 0.7 (0.5-2.0) mmol/L Calcium 9.6 (8.4-10.2) mg/dL Total Bilirubin 1.2 H (0.0-1.0) mg/dL AST 35 (5-37) U/L ALT 46 H (0-40) U/L Alkaline Phosphatase 82 (39-117) U/L C-Reactive Protein 3.19 H (< or = 0.50) mg/dL Total Protein 7.7 (6.5-8.0) g/dL Albumin 4.7 (3.5-5.0) g/dL Procalcitonin 0.03 ng/mL Discharge Plan Discharge Clinical Impression: Pneumonia Patient Disposition: Home, Self-Care Additional Instructions: You seem to have developed a pneumonia which I believe is causing your symptoms. You received IV antibiotics here in the emergency room. You also have prescriptions for amoxicillin/clavulanate (also known as Augmentin) and doxycycline. Please take a dose of each of these antibiotics tonight at bedtime. Then approximately every 12 hours after that. May take 2 extra-strength acetaminophen (Tylenol) up to 3 times a day as needed for pain. In addition I have sent a prescription for oxycodone that you may use as well as needed. Drink a lot of fluids. Please contact your regular doctor's office for a follow up appointment next week. Also stay in touch with your bariatric surgery office. Return to the emergency room if significantly worse. Prescriptions: New amoxicillin-pot clavulanate 875-125 mg tablet 1 tab PO BID Qty: 16 0RF doxycycline monohydrate 100 mg capsule 100 mg PO BID Qty: 16 0RF oxycodone 5 mg tablet 5 mg PO Q6H PRN (Reason: pain) Qty: 14 0RF Rx Instructions: Partial Fill upon patient request. No Action pantoprazole 40 mg tablet,delayed release (DR/EC) 40 mg PO DAILY@0630 ketorolac 10 mg tablet 10 mg PO Q6H PRN (Reason: pain) Qty: 20 0RF Rx Instructions: maximum total duration of 5 days from all oral, intranasal, or parenteral formulations. The patient received an IV dose of Toradol here in the emergency room sucralfate 100 mg/mL suspension 10 ml PO BID Qty: 600 2RF Referrals: Julissa Cuevas MD [Primary Care Provider, Internal Medicine] Interventions: ED Discharge Assessment Last Done: 12/30/24 17:22 Discharge Date/Time: 12/30/24 17:25 Print Language: Persian
[2024-12-30 10:34] LABS: MANUAL DIFF FLAG NO
[2024-12-30 10:36] LABS: Hematocrit 44.4 % (42.0-52.0); Hemoglobin 15.8 g/dl (14.0-18.0); Imm Gran Abs Auto 0.08 X10*3/uL (0.00-0.03); Imm Gran Pct Auto 0.4 % (0.0-0.4); Lymphocytes Absolute Auto 1.0 X10*3/uL (1.2-4.9); Mean Corpuscular HGB Conc 35.6 g/dl (31.0-36.0); Mean Corpuscular Hemoglobin 31.8 pg (27.0-33.0); Mean Corpuscular Volume 89.3 fL (80.0-98.0); NRBC Abs Auto 0.000 X10*3/uL (0.0-0.012); NRBC Pct Auto 0.0 /100WBC (0.0-0.2); Platelet Count 257 X10*3/uL (160-400); Red Blood Count 4.97 X10*6/uL (4.60-5.80); White Blood Count 18.8 X10*3/uL (4.8-10.8)
[2024-12-30 10:56] LABS: Alanine Aminotransferase 46 U/L (0-40); Albumin Level 4.7 g/dL (3.5-5.0); Alkaline Phosphatase 82 U/L (39-117); Anion Gap 14 (12-20); Aspartate Amino Transferase 35 U/L (5-37); Blood Urea Nitrogen 9 mg/dL (9-16); Calcium 9.6 mg/dL (8.4-10.2); Carbon Dioxide 25 mmol/L (22-29); Chloride 103 mmol/L (96-108); Creatinine Clr Calc Pharmacy 132.8; Estimated Glomerular Filt Rate > 60; Potassium 3.7 mmol/L (3.3-5.1); Sodium 138 mmol/L (135-145); Total Protein 7.7 g/dL (6.5-8.0)
[2024-12-30 11:56] VITALS: BP 111/81; PULSE 87; RESP 18; TEMP 37.6; O2SAT 97
[2024-12-30] MEDS: iohexoL 350 MG/ML 100 ML INFUS..BTL IV (13:16)
--- NOTE | 2024-12-30 13:34 | PC.NURSE ---
Laboratory contacted for CRP and procalcitonin add on lab. Running now.
[2024-12-30 14:12] LABS: Procalcitonin 0.03 ng/mL
[2024-12-30 14:26] VITALS: BP 142/88; PULSE 80; RESP 17; TEMP 37.6; O2SAT 95
--- NOTE | 2024-12-30 14:28 | PC.NURSE ---
Pt reports + decrease in pain level; denies SOB; no cough noted; temp 99.7 PO; pt feels warm to touch; denies nausea at this time; LS CTA with dim bases bilaterally; SAO2 95% RA; IV ABX admin. per orders
[2024-12-30] MEDS: oxyCODONE HCl Immed Release 5 MG TABLET PO (15:02)
[2024-12-30 16:09] VITALS: BP 112/62; PULSE 85; RESP 18; TEMP 37.2; O2SAT 94
[2024-12-30 17:22] VITALS: BP 116/65; PULSE 86; RESP 18; TEMP 37.2; O2SAT 95
== END 2024-12-30 17:25 | disposition home or self-care (01) ==
PROVIDERS: Physician Assistant Medical; Emergency Provider Emergency Medicine; PCP Internal Medicine
DX: J18.9 Pneumonia, unspecified organism (principal); R07.89 Other chest pain; R10.9 Unspecified abdominal pain; Z98.890 Other specified postprocedural states; Z87.19 Personal history of other diseases of the digestive system
CPT/HCPCS: 36415; 71046; 71275; 80053; 83605; 84145; 85025; 86140; 87040; 96365; 96366; 96375; 99284; J0696; J1171; J1271; J1885; J2270; J2405; Q9967

== ENCOUNTER 2025-01-03 09:13 | Outpatient (REF) | payer OTHER, SELFPAY ==
[2025-01-03 09:27] LABS: MANUAL DIFF FLAG NO
--- OUTSIDE RECORDS SUMMARY | 2025-01-03 09:33 | XMS_ITS | Clinical Summary ---
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 For example, assistant child care teacher or elderly care for an older [...] 7:30 AM EDT Office Visit Adult Medicine [address] [phone] Julissa Hi MD [address] [place] [phone] Health Maintenance Due Date Last Done Comments [...] LAB CHEMISTRY METHOD 07/26/2024 11:13 AM [facility] Triglycerides 130 0 - 150 mg/dL LAB CHEMISTRY METHOD 07/26/2024 11:13 AM [facility] HDL 35(L) >=40 mg/dL LAB CHEMISTRY METHOD 07/26/2024 11:13 AM [facility] LDL Calculated 103(H) 0 - 100 mg/dL LAB CHEMISTRY METHOD 07/26/2024 11:13 AM [facility] VLDL Cholesterol Goran 26 mg/dL LAB CHEMISTRY METHOD 07/26/2024 11:13 AM [facility] Non HDL Chol. (LDL+VLDL) 129 <145 mg/dL LAB CHEMISTRY METHOD 07/26/2024 11:13 AM EDT [facility] Chol/HDL Ratio 4.7(H) 0.0 - 4.4 LAB CHEMISTRY METHOD 07/26/2024 11:13 AM EDT [facility] Blood Venous blood specimen / Unknown Venipuncture / Unknown 07/26/2024 8:22 AM EDT 07/26/2024 8:22 AM EDT us Julissa Hi MD LAB BLOOD ORDERABL ES Final Result [facility] [address] [place] [address], from Last 3 Months or Most Recently Relevant to Health Maintenance Insurance [facility] [employer] Care Teams Grout Machine Operator Relationship Specialty Start Date End Date Julissa Hi MD [address] [place] [id number] PCP - General 02/10/23
[2025-01-03 10:05] LABS: Hematocrit 44.5 % (42.0-52.0); Hemoglobin 15.4 g/dl (14.0-18.0); Imm Gran Abs Auto 0.05 X10*3/uL (0.00-0.03); Imm Gran Pct Auto 0.7 % (0.0-0.4); Lymphocytes Absolute Auto 1.6 X10*3/uL (1.2-4.9); Mean Corpuscular HGB Conc 34.6 g/dl (31.0-36.0); Mean Corpuscular Hemoglobin 31.8 pg (27.0-33.0); Mean Corpuscular Volume 91.8 fL (80.0-98.0); NRBC Abs Auto 0.000 X10*3/uL (0.0-0.012); NRBC Pct Auto 0.0 /100WBC (0.0-0.2); Platelet Count 262 X10*3/uL (160-400); Red Blood Count 4.85 X10*6/uL (4.60-5.80); White Blood Count 7.5 X10*3/uL (4.8-10.8)
== END 2025-01-03 09:14 | disposition home or self-care (01) ==
LOC: HO.LAB 09:13
PROVIDERS: PCP Internal Medicine; Visit Provider Surgery
DX: J98.11 Atelectasis (principal)
CPT/HCPCS: 36415; 85025; 86140

== ENCOUNTER 2025-03-13 11:19 | Outpatient (AMB) | payer OTHER, SELFPAY ==
--- NOTE | 2025-03-13 11:14 | A.OFFVIS_ITS ---
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 He is 3 mo s/p sleeve gastrectomy performed on 12/15/2024. Weight at last visit 1 week postop was 246.6 lb with a BMI of 27.9. Denies nausea, vomiting, abdominal pain, reflux. He has been in communication with Dr. Méndez and was told to text him next on Mar 30. 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 Father No problems noted. Social History Household Members: Spouse Housing: House Are you a primary youth care specialist to a significant other at home: No Do you presently have visiting nurse or other home services: No Alcohol intake: never Patient Tobacco Use Status: Never used Tobacco Telehealth Telehealth Telehealth Platform: Telephone Location of provider rendering services: practice address Location of patient: address on file Patient Identification confirmed using: Name, : Yes Telehealth method: voice only Patient verbally consented to treatment: Yes Patient verbally consented to billing insurance company: Yes Patient informed of any privacy concerns related to visit: Yes Minutes spent on Phone/Video with Pt.: 20 Assessment & Plan Assessment & Plan (1) S/P laparoscopic sleeve gastrectomy: Code(s): Z98.84 - Bariatric surgery status Category: Surgical (2) Overweight: Code(s): E66.3 - Overweight Category: Medical Plan Pt to continue communicating with Dr Quinn via text. We discussed taking appropriate portion sizes in forkfuls and that he must follow the prescribed portion sizes. I instructed him to go back and review his texts with Dr Quinn but at this point should not be taking more than 6 forkfuls of protein per meal, probably closer to 4 forkfuls meat and if allowed veg 4 forkfuls as well. Pt to track calories with exercise, with goal of 2000 farzana burned per week. Completed PPI and sucralfate, no reflux. Discussed no activity restrictions, pt may lift weights if he would like. RTC 3 mo.
[2025-03-13 11:19] VITALS: BMI 27.9
--- OUTSIDE RECORDS SUMMARY | 2025-03-13 14:23 | XMS_ITS | Data Portability ---
Author Organization [facility] Address [address] [place] [address] Assessment No assessment recorded. Plan of Treatment [...] By Organization Details Last Modified Time 06/25/2023 [id number] This physical does not replace the annual [...] Organization Details Recorded Time OC-DOT PHYSICAL completed [facility] [place] [facility] 06/25/2023 [...] Diagnosis SNOMED-CT Code Diagnosis ICD10 Code Diagnosis IMO Codes Diagnosis Note [id number] [facility] [address] [phone] 07/13/2021 18:29:15 07/13/2021 19:55:38 [id number] [place] [id number] [facility] [address] 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
--- OUTSIDE RECORDS SUMMARY | 2025-03-13 14:23 | XMS_ITS | Clinical Summary ---
Author Organization [facility] [address] [place] [address] [place] [address] Phone Care Team Providers Care Senior Accounting Manager Name Role Phone Julissa Hi MD Primary Care Prov ider Allergies No known active allergies Medications cetirizine (ZyrTEC) 10 mg tablet Take 1 tablet (10 mg total) by mouth 1 (one) time each day. 30 each 2 01/17/2025 Active Active Problems Problem Noted Date Diagnosed Date Unilateral undescended testicle 06/25/2023 Encounters Date Type Department Care Team Description 01/17/2025 10:45 AM EDT Office Visit Adult Medicine [address] [phone] Julissa Hi MD Lower abdominal pain (Primary Dx); Pneumonia of left lower lobe due to infectious organism; Class 1 obesity due to excess calories without serious comorbidity with body mass index (BMI) of 30.0 to 30.9 in adult 01/03/2025 Telephone Adult Medicine [address] [phone] Julissa Hi MD from Last 3 Months Immunizations Immunization Administration Dates Next Due Influenza Quadravalent, MDCK [...] Record ed Within the last 3 months, antonietta hazel many times did you visit the emergency [...] for your loved ones. For example, child caregiver private home or elderly care for an older adult? [...] Date Recorded What is your living situation? Unrecognized valu e 07/20/2024 Sex and Gender Information Value Date Recorded Sex Assigned at Male 06/17/2024 3:56 PM EST Legal Sex Male 6:17 PM EST Gender Identity Male 06/17/2024 3:56 PM EST Sexual Orientation Not on file Obstetrics History Last Filed Vital Signs Vital Sign Reading Time Taken Comments Blood Pressure 84/67 01/17/2025 10:39 AM EDT Pulse 78 01/17/2025 10:39 AM EDT Temperature 36.9 C (98.4 F) 01/17/2025 10:39 AM EDT Respiratory Rate 18 07/21/2024 8:01 AM EDT Oxygen Saturation 99% 01/17/2025 10:39 AM EDT Inhaled Oxygen Concentration - - Weight 107 kg (236 lb) 01/17/2025 10:39 AM EDT Height 188 cm (6' 2 ) 01/17/2025 10:39 AM EDT Body Mass Index 30.3 01/17/2025 10:39 AM EDT Plan of Treatment Upcoming Encounters Date Type Department Care Team (Late st Contact Info) Description 07/24/2025 7:30 AM EDT Office Visit Adult Medicine [address] [phone] Julissa Hi MD [address] [place] [address] Health Maintenance Due Date Last Done Comments Hepatitis B Vaccines (1 of 3 - 19+ 3-dose series) 2005 HPV Vaccines (1 - 3-dose SCD M series) 2013 HIV Screening 06/12/2023 Hepatitis C Screening 06/12/2023 Influenza Vaccine (#1) 2025 06/25/2023 Social Influencers of Health Screening 07/20/2025 07/20/2024 Cholesterol Screening (Lipid Panel) 07/26/2029 07/26/2024, 07/01/2023 DTaP,Tdap,and Td Vaccines (2 - Td or Tdap) 06/25/2030 06/25/2020 RSV Immunization Adult Patients (1 - 1-dose 75+ series) 2061 COVID-19 Vaccine Discontinued 01/16/2021, 12/18/2020 Depression Screening [...] Procedure Name Priority Date/Time Associated Diagnosis Comments BETANCOURT URINE CULTURE TUBE Routine 01/17/2025 11:37 AM EDT Lower abdominal pain URINALYSIS WITH REFLEX MICROSCOPIC AND CULTURE Routine 01/17/2025 11:37 AM EDT Lower abdominal pain URINALYSIS WITH REFLEX MICROSCOPIC AND CULTURE Routine 01/17/2025 11:37 AM EDT Lower abdominal pain CT PELVIS WO CONTRAST Routine 12/29/2024 2:59 PM EDT LIPID PANEL WITH REFLEX TO DIRECT LDL Routine 07/26/2024 8:22 AM EDT Adult general medical examination from Last 3 Months or Most Recently Relevant to Health Maintenance Results * (ABNORMAL) Urinalysis with reflex microscopic and culture (01/17/2025 11:37 AM EDT) Specific [place] Urine 1.031(H) 1.003 - 1.030 LAB URINALYSIS - AUTOMATED METHOD 01/17/2025 2:07 PM [facility] pH, Urine 5.5 5.0 - 8.0 pH LAB URINALYSIS - AUTOMATED METHOD 01/17/2025 2:07 PM [facility] Leukocytes, Urine Negative Negative LAB URINALYSIS - AUTOMATED METHOD 01/17/2025 2:07 PM [facility] Nitrite, Urine Negative Negative LAB URINALYSIS - AUTOMATED METHOD 01/17/2025 2:07 PM [facility] Protein, Urine Trace <=Trace mg/dL LAB URINALYSIS - AUTOMATED METHOD 01/17/2025 2:07 PM [facility] Glucose, Urine Negative Negative mg/dL LAB URINALYSIS - AUTOMATED METHOD 01/17/2025 2:07 PM [facility] Ketones, Urine 15(A) Negative mg/dL LAB URINALYSIS - AUTOMATED METHOD 01/17/2025 2:07 PM [facility] Urobilinogen, Urine 1.0 0.2 - 1.0 mg/dL LAB URINALYSIS - AUTOMATED METHOD 01/17/2025 2:07 PM [facility] Bilirubin, Urine Small(A) Negative LAB URINALYSIS - AUTOMATED METHOD 01/17/2025 2:07 PM [facility] Blood, Urine Negative Negative LAB URINALYSIS - AUTOMATED METHOD 01/17/2025 2:[address] [facility] Urine Urine specimen obtained by clean catch procedure / Unknown Non-blood Collection / Unknown 01/17/2025 11:37 AM EDT 01/17/2025 11:37 AM EDT Julissa Hi MD LAB URINE ORDERABL ES Final Result Performing Organization Address City/[facility]/ZIP Co de Phone Number [facility] [address] [place] [address], [place] [phone] * [place] urine culture tube (01/17/2025 11:37 AM EDT) Extra Tube Hold for add-ons. 01/17/2025 2:[address] [facility] Comment:Auto resulted. Urine Urine specimen obtained by clean catch procedure / Unknown Non-blood Collection / Unknown 01/17/2025 11:37 AM EDT 01/17/2025 11:37 AM EDT Julissa Hi MD LAB URINE ORDERABL ES Final Result Performing Organization Address City/[facility]/ZIP Co de Phone Number [facility] [address] [place] [address], [place] [phone] * CT Pelvis wo Contrast (12/29/2024 2:59 PM EDT) Anatomical Region Laterality Modality Body, Pelvis Computed Tomogra phy Historical Provider IMG CT PROCEDURES Final R esult * (ABNORMAL) Lipid panel with reflex to direct LDL (07/26/2024 8:22 AM EDT) Cholesterol 164 0 - 200 mg/dL LAB CHEMISTRY METHOD 07/26/2024 11:[address] [facility] Triglycerides 130 0 - 150 mg/dL LAB CHEMISTRY METHOD 07/26/2024 11:[address] [facility] HDL 35(L) >=40 mg/dL LAB CHEMISTRY METHOD 07/26/2024 11:[address] [facility] LDL Calculated 103(H) 0 - 100 mg/dL LAB CHEMISTRY METHOD 07/26/2024 11:[address] [facility] VLDL Cholesterol Goran 26 mg/dL LAB CHEMISTRY METHOD 07/26/2024 11:[address] [facility] Non HDL Chol. (LDL+VLDL) 129 <145 mg/dL LAB CHEMISTRY METHOD 07/26/2024 11:[address] [facility] Chol/HDL Ratio 4.7(H) 0.0 - 4.4 LAB CHEMISTRY METHOD 07/26/2024 11:[address] [facility] Blood Venous blood specimen / Unknown Venipuncture / Unknown 07/26/2024 8:22 AM EDT 07/26/2024 8:22 AM EDT us Julissa Hi MD LAB BLOOD ORDERABL ES Final Result [facility] [address] [place] [address], from Last 3 Months or Most Recently Relevant to Health Maintenance Insurance [facility] [employer] Care Teams Senior Accounting Manager Relationship Specialty Start Date End Date Julissa Hi MD [address] [place] [phone] PCP - General 02/10/23
== END 2025-03-13 11:35 | disposition home or self-care (01) ==
LOC: HO.HBS 11:19
PROVIDERS: PCP Internal Medicine; Visit Provider Physician Assistant Surgical
DX: E66.3 Overweight (principal); Z68.27 Body mass index [BMI] 27.0-27.9, adult; Z90.3 Acquired absence of stomach [part of]; Z98.84 Bariatric surgery status
CPT/HCPCS: 99024